=== PATIENT | female | born 1970 | race Caucasian/White ===

== ENCOUNTER → 2016-03-17 | Outpatient (CLI) | payer OTHER ==
--- NOTE | 2016-03-17 10:11 | CT ---
EXAMINATION TYPE: CT abdomen pelvis w con DATE OF EXAM: 03/17/2016 8:43 AM COMPARISON: 05/13/2012 INDICATION: Patient complains of RUQ, RLQ pain, and heavy menstrual flows. DLP: 879 mGycm, Automated exposure control for dose reduction was used. CONTRAST: 100 mL of Omnipaque 300. Study performed with Oral Contrast TECHNIQUE: Axial images were obtained from above the diaphragm to the pubic rami in the axial plane a t 5 mm thick sections. Reconstructed images are reviewed on the computer in the coronal plane. FINDINGS: Limited CT sections are obtained the lung bases. The lung bases are clear. CT ABDOMEN: Liver: Tiny right hepatic cyst may be present. Spleen: Normal Pancreas: Normal Adrenal glands: The adrenal glands are normal. Gallbladder: Surgically absent Kidneys: No masses are evident. No hydronephrosis is present. No cysts are present. Delayed images were obtained through the kidneys, which remain unremarkable. Aorta: Vascular calcification is within the aorta. Inferior vena cava: Normal. CT PELVIS: Loops of bowel within the abdomen and pelvis are normal. There are loops of bowel which are incom pletely distended or lack oral contrast limiting their evaluation. Appendix: Not visualized Urinary bladder: Normal. Genitourinary structures: There is a very large slightly heterogenous mass extending from the superio r portion of the uterus. This measures approximately 11.7 x 14.6 cm and has enlarged from 2012. This can be compatible with a large fibroid. Right adnexal region appears unremarkable. Left adnexal regio n likely contains a 2.1 cm cyst. Follow-up is recommended. Some minimal left hemipelvis free fluid ma y be present. Osseous structures: No suspicious lytic or sclerotic lesions. IMPRESSIONS: 1. Enlarging uterine fibroid displacing structures. 2. Left ovarian cyst measuring 2.1 cm. 3. Small amount of free fluid within the pelvis.
== END | disposition home or self-care (01) ==
LOC: RADCTMAIN 08:18
PROVIDERS: ATTEND Internal Medicine
DX: D25.9 Leiomyoma of uterus, unspecified (principal); N83.202 Unspecified ovarian cyst, left side
CPT/HCPCS: 74177; Q9967

== ENCOUNTER → 2018-03-27 | Outpatient (CLI) | payer OTHER ==
[2018-03-27 09:28] LABS: Anisocytosis Slight; Basophils % (A) 1 %; Eosinophils # (A) 0.2 k/uL (0-0.7); Eosinophils % (A) 2 %; HGB 11.3 gm/dL (11.4-16.0); Hypochromasia Marked; Lymphocytes # (A) 1.4 k/uL (1.0-4.8); Lymphocytes % (A) 21 %; MCH 25.8 pg (25.0-35.0); MCHC 31.3 g/dL (31.0-37.0); MCV 82.3 fL (80.0-100.0); Mean Platelet Volume 7.1; Monocytes # (A) 0.5 k/uL (0-1.0); Monocytes % (A) 8 %; Neutrophils # (A) 4.4 k/uL (1.3-7.7); Neutrophils % (A) 66 %; Platelet Count 361 k/uL (150-450); RBC 4.37 m/uL (3.80-5.40); RDW 16.3 % (11.5-15.5); WBC 6.7 k/uL (3.8-10.6)
--- NOTE | 2018-03-27 09:45 | XR ---
Cervical spine HISTORY: Neck pain 5 views of the cervical spine Cervical vertebral bodies show preserved height, near anatomic alignment, and bone mineralization. Di sc spaces are normal. Minimal retrolisthesis grade 1 C3-4, anterolisthesis grade 1 C4-5. There is altagracia e facet arthropathy changes. Prevertebral soft tissues are normal. No evident foraminal encroachment. Atherosclerotic vascular calcifications resident artery distribution. IMPRESSION: Facet arthropathy, consider cervical MRI. Additional findings above.
--- NOTE | 2018-03-27 10:14 | XR ---
Thoracic spine HISTORY: Pain 3 views of the thoracic spine Thoracic vertebral bodies show preserved height, alignment, and bone mineralization. There is multile emmett spondylosis. Spinal curvature could be positional. Surgical clips are present in the right upper quadrant. IMPRESSION: Thoracic spondylosis. MRI may be of benefit.
--- NOTE | 2018-03-27 10:18 | XR ---
Lumbosacral spine HISTORY: Pain for 2 years 6 views of the lumbosacral spine submitted. There is a mild spinal curvature centered at L4. Surgical clips are present in the right upper quadra nt. Lumbar vertebral bodies show preserved height. Bilateral spondylolysis present at L5. There is a minimal retrolisthesis grade 1 L5-S1. Associated loss of disc height is present L5-S1 and also at L1- 2. There is spondylosis in the lumbar spine. T12 is not rib bearing. Bone mineralization is maintaine d. Sclerosis present in the posterior elements of the lower lumbar spine. IMPRESSION: Spondylolysis, spondylolisthesis, facet arthropathy. Consider lumbar MRI.
[2018-03-27 16:43] LABS: Albumin 4.2 g/dL (3.80-4.90); Albumin/Globulin Ratio 2.21 (1.60-3.17); Anion Gap 15.3 mmol/L (4.00-12.00); Calcium 9.1 mg/dL (8.7-10.3); Carbon Dioxide 20.7 mmol/L (21.6-31.8); Globulin 1.9 g/dL (1.6-3.3); Potassium 3.7 mmol/L (3.5-5.5); Total Bilirubin 0.2 mg/dL (0.2-1.2); Total Protein 6.1 g/dL (6.2-8.2)
== END | disposition home or self-care (01) ==
LOC: LABWHC1 08:01
PROVIDERS: ATTEND Internal Medicine
DX: M43.12 Spondylolisthesis, cervical region (principal); M43.17 Spondylolisthesis, lumbosacral region; M47.814 Spondylosis without myelopathy or radiculopathy, thoracic region; M46.97 Unspecified inflammatory spondylopathy, lumbosacral region; M46.92 Unspecified inflammatory spondylopathy, cervical region; I10 Essential (primary) hypertension; K21.9 Gastro-esophageal reflux disease without esophagitis; J44.9 Chronic obstructive pulmonary disease, unspecified; R06.02 Shortness of breath
CPT/HCPCS: 36415; 72050; 72070; 72110; 80053; 85025

== ENCOUNTER → 2018-04-20 | Outpatient (CLI) | payer OTHER ==
--- NOTE | 2018-04-20 17:48 | MR ---
EXAMINATION TYPE: MR lumbar spine wo con DATE OF EXAM: 04/20/2018 COMPARISON: None HISTORY: Low back pain CONTRAST: 0 mL intravenous Gadavist. TECHNIQUE: Multiplanar, multisequence images of the lumbar spine were acquired. FINDINGS: L5-S1: Mild disc bulging is anterior thecal sac contact. No spinal canal stenosis present. There is s evere right foraminal stenosis disc bulging. Moderate left foraminal narrowing is present. Correlate with right S1 radicular symptoms. L4-L5: No significant disc bulge or disc herniation. No spinal canal stenosis. No foraminal stenosi s. Neural foramen are patent.. L3-L4: No significant disc bulge or disc herniation. No spinal canal stenosis. Neural foramen are pa tent.. L2-L3: No significant disc bulge or disc herniation. No spinal canal stenosis. No foraminal stenosi s. . L1-L2: No significant disc bulge or disc herniation. No spinal canal stenosis. No foraminal stenosi s. . T12-L1: No significant disc bulge or disc herniation. No spinal canal stenosis. No foraminal stenos is. . There is a hemangioma within T12 vertebral level. IMPRESSION: 1. Disc bulging L5-S1 appears mild minimal contact with the anterior thecal sac. 2. Disc bulging towards the right foramen contributes to severe foraminal stenosis correlate with rig ht S1 radicular.
== END ==
LOC: RADMRIMAIN 12:31
PROVIDERS: ATTEND Internal Medicine
DX: M99.73 Connective tissue and disc stenosis of intervertebral foramina of lumbar region (principal); M51.25 Other intervertebral disc displacement, thoracolumbar region
CPT/HCPCS: 72148

== ENCOUNTER → 2018-05-30 | Outpatient (CLI) | payer OTHER ==
--- NOTE | 2018-05-30 22:50 | MR ---
EXAMINATION TYPE: MR cspine/tspine wo con DATE OF EXAM: 05/30/2018 COMPARISON: X-ray cervical and thoracic spine March 27, 2018. HISTORY: Cervicalgia /Pain in thoracic spine per order. Headache with neck pain into shoulders arm an d hands causing pain or weakness for 6 months per patient. Mid back pain for 2 years per patient. TECHNIQUE: Multiplanar, multisequence imaging of cervical and thoracic spine are performed without co ntrast FINDINGS: C-SPINE: FINDINGS: Sagittal images of the cervical spine show the craniocervical junction to appear within nor mal limits. The cervical and upper thoracic spinal cord is normal in course, caliber, and signal. Th ere is slight grade 1 retrolisthesis of C3 on C4, C4 on C5, and C5 on C6. The vertebral body and int ravertebral disk heights are normal. The bone marrow signal intensity is within normal limits. Axial images show to C2-C3 level to appear within normal limits. Axial images at C3-C4 level shows small right paracentral/foraminal disc protrusion minimally effaces the anterior thecal sac and causing mild right-sided neural foraminal narrowing. Axial images at the C4-C5 level showed broad based posterior disc protrusion mildly facing anterior t hecal sac, bilateral neural foramina are patent. Axial images at C5-C6 level showed mild/moderate broad based disc protrusion effacing the anterior th ecal sac and causing mild left-sided neural foraminal narrowing. Axial images at C6-C7 level mild broad disc protrusion mildly effaces the anterior thecal sac, bilate ral neural foramina are patent. Axial images at C7-T1 level are within normal limits. IMPRESSION: Multilevel spondylolisthesis and degenerative changes C3-C4 through C6-C7 level as detail ed above. T-SPINE: Spinal cord shows normal course, caliber, and signal as it courses the thoracic spine. Vertebral bod y heights and alignment are satisfactory. Disc space heights are fairly well-maintained. Tiny posteri or disc herniations are present at T3-T4-T5-T6 level on sagittal images minimally effaces the anterio r thecal sac. Additional tiny posterior disc herniations are seen at T9-T10 and T10-T11 level minimal ly effacing the anterior thecal sac . Larger posterior disc herniations are seen at T11-T12 and T12-L 1 effacing the anterior thecal sac on sagittal images. Small hemangioma T12 level is present sagittal image 9 inferior endplate. Review of the axial images confirms most prominent findings of disc herniation and facet arthropathy with ligamentum flavum hypertrophy effaces the anterior and posterior lateral thecal sac axial image 6 at T11-T12 level. No additional disc herniations besides what stated above are identified. Visuali zed thorax and upper abdomen show no suspicious incidental abnormality. IMPRESSION: Multilevel small posterior disc herniations with prominent degenerative noted T11-T12 lev el as detailed above.
== END | disposition home or self-care (01) ==
LOC: RADMRIMAIN 18:58
PROVIDERS: ATTEND Psychiatry & Neurology Neurology
DX: M43.12 Spondylolisthesis, cervical region (principal); M51.24 Other intervertebral disc displacement, thoracic region; M51.34 Other intervertebral disc degeneration, thoracic region; M47.812 Spondylosis without myelopathy or radiculopathy, cervical region; Z88.1 Allergy status to other antibiotic agents
CPT/HCPCS: 72141; 72146

== ENCOUNTER 2022-05-01 08:58 | Inpatient (IN) | payer OTHER ==
[2022-05-01] MEDS ORDERED: PIPERACILLIN-TAZOBACTAM 3.375 GM in SODIUM CHLORIDE 0.9% 100 ML IVPB STA (09:02)
[2022-05-01] MEDS ORDERED: HYDROmorphone 0.5 MG/0.5 ML SYRINGE IVP STA (09:03)
--- NOTE | 2022-05-01 09:15 | ED ---
General Adult HPI - General Chief complaint: Abdominal Pain Stated complaint: post op Time Seen by Provider: 05/01/22 08:58 Source: patient, EMS, RN notes reviewed, old records reviewed Mode of arrival: EMS Limitations: no limitations - History of Present Illness Initial comments: This a 51-year-old female presents emergency department after having had a hysterectomy 2 weeks ago. Patient comes in today because she states that she coughed this morning and she has complete dehiscence of the wound and had bowel evisceration. Patient states it is very tender to palpate. Patient does not want back to see the surgeon who did the surgery at [facility]. Patient's states that she had a little bit of drainage from the site but it didn't rip open until today. - Related Data Allergies Allergy/AdvReac Type Severity Reaction Status Date / Time Tetracyclines AdvReac Anaphylaxis Verified 05/01/22 09:05 Review of Systems ROS Statement: Those systems with pertinent positive or pertinent negative responses have been documented in the HPI. ROS Other: All systems not noted in ROS Statement are negative. Past Medical History Past Medical History: Asthma, Hypertension History of Any Multi-Drug Resistant Organisms: None Reported Past Surgical History: Cholecystectomy, Hysterectomy Additional Past Surgical History / Comment(s): x 2. Past Psychological History: No Psychological Hx Reported Smoking Status: Current every day smoker Past Alcohol Use History: None Reported Past Drug Use History: Marijuana General Exam Limitations: no limitations Course Vital Signs 05/01/22 09:02 Temperature 98.8 F Pulse Rate 99 Respiratory 18 Rate Blood Pressure 120/71 O2 Sat by Pulse 99 Oximetry Medical Decision Making - Medical Decision Making EKG was interpreted by myself. EKG shows a sinus rhythm at 94 bpm [place] interval 246 dresses 98 QT interval 377 QTC is 429. Patient's EKG shows no ST segment elevation or depression. Was pt. sent in by a medical professional or institution (, PA, SALES REPRESENTATIVE ADDING MACHINES, urgent care, hospital, or residential...) When possible be specific @ -No Did you speak to anyone other than the patient for history (EMS, parent, family, police, friend...)? What history was obtained from this source @ -No Did you review nursing and triage notes (agree or disagree)? Why? @ -I reviewed and agree with nursing and triage notes Were old charts reviewed (outside hosp., previous admission, EMS record, old EKG, old radiological studies, urgent care reports/EKG's, residential records)? Report findings @ -No old charts were reviewed Differential Diagnosis (chest pain, altered mental status, abdominal pain women, abdominal pain men, vaginal bleeding, weakness, fever, dyspnea, syncope, headache, dizziness, GI bleed, back pain, seizure, CVA, palpatations, mental health, musculoskeletal)? @ -Differential Abdominal Pain Women: Wound dehiscence, bowel evisceration, Appendicitis, Cholecystitis, diverticulosis, ischemic bowel, pancreatitis, hepatitis, UTI, gastroenteritis, AAA, incarcerated hernia, bowel obstruction, constipation, inflammatory bowel, hepatitis, peptic ulcer disease, splenic infarction, perforated viscus, vulvitis, ovarian torsion, PID, kidney stone, placenta abruption, this is not meant to be an all-inclusive list EKG interpreted by me (3pts min.). @ -As above X-rays interpreted by me (1pt min.). @ -None done CT interpreted by me (1pt min.). @ -None done U/S interpreted by me (1pt. min.). @ -None done What testing was considered but not performed or refused? (CT, X-rays, U/S, labs)? Why? @ -None What meds were considered but not given or refused? Why? @ -None Did you discuss the management of the patient with other professionals (professionals i.e. , PA, SALES REPRESENTATIVE ADDING MACHINES, lab, RT, psych nurse, neonatal social worker, commercial art instructor, teacher, juvenile justice officer, rifle case repairer)? Give summary @ -I spoke with Dr. Harkins about the case and she agreed to come in and take the patient to surgery. I spoke with Dr. Terry she agreed that Gen. surgery's she should be taken care of this case. I spoke with Dr. kennedy he agreed to admit the patient to his service Was smoking cessation discussed for >3mins.? @ -No Was critical care preformed (if so, how long)? @ -No Were there social determinants of health that impacted care today? How? (Homelessness, low income, unemployed, alcoholism, drug addiction, transportation, low edu. Level, literacy, decrease access to med. care, detention, rehab)? @ -No Was there de-escalation of care discussed even if they declined (Discuss DNR or withdrawal of care, Hospice)? DNR status @ -No What co-morbidities impacted this encounter? (DM, HTN, Smoking, COPD, CAD, Cancer, CVA, ARF, Chemo, Hep., AIDS, mental health diagnosis, sleep apnea, morbid obesity)? @ -None Was patient admitted / discharged? Hospital course, mention meds given and route, prescriptions, significant lab abnormalities, going to OR and other pertinent info. @ -I saw the patient put in baseline orders EKG and type and screen to prep the patient for surgery. I spoke with the general surgeon the BILINGUAL SPEECH THERAPIST as well as engineering librarian. Patient will go to the OR with Dr. Raman and the patient will be admitted to Dr. nichols Undiagnosed new problem with uncertain prognosis? @ -No Drug Therapy requiring intensive monitoring for toxicity (Heparin, Nitro, Insulin, Cardizem)? @ -No Were any procedures done? @ -No Diagnosis/symptom? @ -Dehiscence with bowel evisceration Acute, or Chronic, or Acute on Chronic? @ -Acute Uncomplicated (without systemic symptoms) or Complicated (systemic symptoms)? @ -Complicated Side effects of treatment? @ -No Exacerbation, Progression, or Severe Exacerbation? @ -No Poses a threat to life or bodily function? How? (Chest pain, [place], DC, pneumonia, PE, COPD, DKA, ARF, appy, cholecystitis, CVA, Diverticulitis, Homicidal, Suicidal, threat to staff... and all critical care pts) @ -ES could lead to infection which can lead to sepsis and eventual end organ dysfunction Disposition Clinical Impression: Abdominal wall dehiscence, Evisceration of bowel Disposition: ADMITTED IP TO THIS HOSP Referrals: Trell Trevino MD [Primary Care Provider] - 1-2 days Time of Disposition: 09:34
[2022-05-01 09:38] LABS: Basophils # (A) 0.1 k/uL (0-0.2); Basophils % (A) 1 %; Eosinophils # (A) 0.3 k/uL (0-0.7); Eosinophils % (A) 2 %; HCT 29.8 % (34.0-46.0); HGB 9.6 gm/dL (11.4-16.0); Lymphocytes # (A) 1.4 k/uL (1.0-4.8); Lymphocytes % (A) 8 %; MCH 27.3 pg (25.0-35.0); MCHC 32.1 g/dL (31.0-37.0); MCV 85.2 fL (80.0-100.0); Mean Platelet Volume 7.1; Monocytes # (A) 0.6 k/uL (0-1.0); Monocytes % (A) 4 %; Neutrophils # (A) 14.3 k/uL (1.3-7.7); Neutrophils % (A) 84 %; Platelet Count 974 k/uL (150-450); RDW 14.3 % (11.5-15.5); WBC 17.1 k/uL (3.8-10.6)
[2022-05-01] MEDS ORDERED: SODIUM CHLORIDE 0.9% 1,000 ML IV ONE (09:38)
[2022-05-01 09:49] LABS: Partial Thromboplastin Time 24.1 sec (22.0-30.0); Prothrombin Time 10.4 sec (9.0-12.0)
[2022-05-01 09:50] LABS: ALT 15 U/L (4-34); AST 21 U/L (14-36); African American GFR (CKD) >90 (>60 ml/min/1.73 sqM); Albumin 2.9 g/dL (3.5-5.0); Alkaline Phosphatase 119 U/L (38-126); Anion Gap 7 mmol/L; Blood Urea Nitrogen 10 mg/dL (7-17); Calcium 8.3 mg/dL (8.4-10.2); Carbon Dioxide 26 mmol/L (22-30); Chloride 102 mmol/L (98-107); Glucose 98 mg/dL (74-99); Non-African American GFR(CKD) >90 (>60 ml/min/1.73 sqM); Potassium 4.1 mmol/L (3.5-5.1); Sodium 135 mmol/L (137-145); Total Bilirubin 0.3 mg/dL (0.2-1.3); Total Protein 5.6 g/dL (6.3-8.2)
[2022-05-01] MEDS ORDERED: HYDROmorphone 1 MG/ML 1 ML SYRINGE IVP STA (11:19)
[2022-05-01] MEDS ORDERED: ESTRADIOL 0.1 MG/GM VAGINAL CREAM 42.5 GM TUBE VAGINAL SCH (11:30)
--- NOTE | 2022-05-01 11:33 | P.HPIM ---
History of Present Illness 31-year-old female is admitted for wound dehiscence after coughing spell. 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 Patient has clear serous drainage beyond which exami nation is limited because of evisceration of the bowel, patient has a dressing over the dehiscence wound. Patient was given Zosyn in ER. Patient is going to OR. She had recent abdominal hysterectomy for uterine fibroids. REVIEW OF SYSTEMS: CONSTITUTIONAL: No fever, no malaise, no fatigue. HEENT: No recent visual problems or hearing problems. Denied any sore throat. CARDIOVASCULAR: No chest pain, orthopnea, PND, no palpitations, no syncope. PULMONARY: No shortness of breath, no cough, no hemoptysis. GASTROINTESTINAL: No diarrhea, no nausea, no vomiting, NEUROLOGICAL: No headaches, no weakness, no numbness. HEMATOLOGICAL: Denies any bleeding or petechiae. GENITOURINARY: Denies any burning micturition, frequency, or urgency. MUSCULOSKELETAL/RHEUMATOLOGICAL: Denies any joint pain, swelling, or any muscle pain. ENDOCRINE: Denies any polyuria or polydipsia. The rest of the 14-point review of systems is negative. PHYSICAL EXAMINATION: GENERAL: The patient is alert and oriented x3, not in any acute distress. Well developed, well nourished. HEENT: Pupils are round and equally reacting to light. EOMI. No scleral icterus. No conjunctival pallor. Normocephalic, atraumatic. No pharyngeal erythema. No thyromegaly. CARDIOVASCULAR: S1 and S2 present. No murmurs, rubs, or gallops. PULMONARY: Chest is clear to auscultation, no wheezing or crackles. ABDOMEN: Soft, nontender, nondistended, normoactive bowel sounds. No palpable organomegaly. The dressing with serous drainage unable to assess that dehiscence unable to assess the surrounding skin as it was packed with wet dressing MUSCULOSKELETAL: No joint swelling or deformity. EXTREMITIES: No cyanosis, clubbing, or pedal edema. NEUROLOGICAL: Gross neurological examination did not reveal any focal deficits. SKIN: No rashes. Assessment and plan -Wound dehiscence patient will go to OR, unsure whether patient needs antibiotics will discuss with surgery. -COPD without any acute exacerbation: Cessation counseling will be provided -Hypertension patient is hypotensive will hold off and hip his medications except for beta brittany. - DVT prophylaxis: Lovenox Past Medical History Past Medical History: Asthma, Hypertension History of Any Multi-Drug Resistant Organisms: None Reported Past Surgical History: Cholecystectomy, Hysterectomy Additional Past Surgical History / Comment(s): x 2. Past Psychological History: No Psychological Hx Reported Smoking Status: Current every day smoker Past Alcohol Use History: None Reported Past Drug Use History: Marijuana Medications and Allergies Home Medications Medication Instructions Recorded Confirmed Type Albuterol Sulfate [Ventolin HFA] 1 - 2 puff INHALATION RT-Q6H PRN 05/01/22 05/01/22 History Cetirizine HCl 10 mg PO DAILY 05/01/22 05/01/22 History Docusate [Colace] 100 mg PO BID PRN 05/01/22 05/01/22 History Estradiol Cream [Estrace Cream 1 applic VAGINAL DIRECTED 05/01/22 05/01/22 History 0.01%] Ferrous Sulfate [Feosol] 325 mg PO DAILY 05/01/22 05/01/22 History HYDROcodone/APAP 7.5-325MG [[place] 1 tab PO Q4H PRN 05/01/22 05/01/22 History 7.5-325] Ibuprofen [Motrin] 800 mg PO Q8H PRN 05/01/22 05/01/22 History Levothyroxine Sodium [Synthroid] 25 mcg PO DAILY 05/01/22 05/01/22 History Losartan Potassium 100 mg PO DAILY 05/01/22 05/01/22 History Montelukast [Singulair] 10 mg PO DAILY 05/01/22 05/01/22 History Multivitamins, Thera [Multivitamin 1 tab PO DAILY 05/01/22 05/01/22 History (formulary)] Omeprazole 20 mg PO DAILY 05/01/22 05/01/22 History Tiotropium Nitro [Spiriva] 18 mcg INHALATION RT-DAILY 05/01/22 05/01/22 History amLODIPine [Norvasc] 10 mg PO DAILY 05/01/22 05/01/22 History atenoloL [Tenormin] 25 mg PO DAILY 05/01/22 05/01/22 History Allergies Allergy/AdvReac Type Severity Reaction Status Date / Time Tetracyclines AdvReac Anaphylaxis Verified 05/01/22 10:41 Physical Exam Vitals: Vital Signs Temp Pulse Pulse Resp BP BP Pulse Ox 05/01/22 10:45 98.0 F 96 18 102/66 95 05/01/22 10:20 92 18 99/60 99 05/01/22 10:05 93 18 109/71 98 05/01/22 09:45 98 18 100/64 98 05/01/22 09:20 96 18 112/74 99 05/01/22 09:02 98.8 F 99 18 120/71 99 Intake and Output 04/30/22 05/01/22 05/01/22 21:59 06:59 14:59 Other: Weight 87.997 kg Results CBC & Chem 7: 05/01/22 09:02 05/01/22 09:02 Labs: Abnormal Lab Results - Last 24 Hours (Table) 05/01/22 05/01/22 Range/Units 09:02 09:02 WBC 17.1 H (3.8-10.6) k/uL RBC 3.50 L (3.80-5.40) m/uL Hgb 9.6 L (11.4-16.0) gm/dL Hct 29.8 L (34.0-46.0) % Plt Count 974 H (150-450) k/uL Neutrophils # 14.3 H (1.3-7.7) k/uL Sodium 135 L (137-145) mmol/L Calcium 8.3 L (8.4-10.2) mg/dL Total Protein 5.6 L (6.3-8.2) g/dL Albumin 2.9 L (3.5-5.0) g/dL Thrombosis Risk Factor Assmnt - Choose All That Apply Each Factor Represents 1 point: Age 41-60 years, History of prior major surgery (<1month), Obesity (BMI >25) Other Risk Factors: No Other congenital or acquired thrombophilia - If yes, enter type in comment: No Thrombosis Risk Factor Assessment Total Risk Factor Score: 3 Thrombosis Risk Factor Assessment Level: Moderate Risk
--- NOTE | 2022-05-01 13:22 | P.GSCN ---
History of Present Illness Consult date: 05/01/22 Reason for Consult: bowel evisceration History of present illness: 51F presented to ER with bowel evisceration from recent hysterectomy. Underwent hysterectomy 2 weeks ago at [facility] for uterine fibroids. Endorsed some fluid leaking from incision then this morning after a coughing spell, noticed bowel protruding from incision. She refused to be transferred back to [facility]. call specialist CATHODE BUILDER called by ER, refused consult. Seen in ER. Nervous but just wants to be fixed. Thinks it happened this morning & doesn't believe bowel has been out before then. Generalized abdominal pain. No nausea. Review of Systems - Constitutional Reports chronic pain - Cardiovascular Reports high blood pressure, Denies irregular heart beat - Respiratory Reports cough, Denies home oxygen - Gastrointestinal Reports abdominal pain - Genitourinary Genitourinary Comment(s): history of uterine fibroids - Endocrine Denies high blood sugars Past Medical History Past Medical History: Asthma, Hypertension History of Any Multi-Drug Resistant Organisms: None Reported Past Surgical History: Cholecystectomy, Hysterectomy Additional Past Surgical History / Comment(s): x 2. Past Psychological History: No Psychological Hx Reported Smoking Status: Current every day smoker Past Alcohol Use History: None Reported Past Drug Use History: Marijuana Medications and Allergies Home Medications Medication Instructions Recorded Confirmed Type Albuterol Sulfate [Ventolin HFA] 1 - 2 puff INHALATION RT-Q6H PRN 05/01/22 05/01/22 History Cetirizine HCl 10 mg PO DAILY 05/01/22 05/01/22 History Docusate [Colace] 100 mg PO BID PRN 05/01/22 05/01/22 History Estradiol Cream [Estrace Cream 1 applic VAGINAL DIRECTED 05/01/22 05/01/22 History 0.01%] Ferrous Sulfate [Feosol] 325 mg PO DAILY 05/01/22 05/01/22 History HYDROcodone/APAP 7.5-325MG [[place] 1 tab PO Q4H PRN 05/01/22 05/01/22 History 7.5-325] Ibuprofen [Motrin] 800 mg PO Q8H PRN 05/01/22 05/01/22 History Levothyroxine Sodium [Synthroid] 25 mcg PO DAILY 05/01/22 05/01/22 History Losartan Potassium 100 mg PO DAILY 05/01/22 05/01/22 History Montelukast [Singulair] 10 mg PO DAILY 05/01/22 05/01/22 History Multivitamins, Thera [Multivitamin 1 tab PO DAILY 05/01/22 05/01/22 History (formulary)] Omeprazole 20 mg PO DAILY 05/01/22 05/01/22 History Tiotropium [place] [Spiriva] 18 mcg INHALATION RT-DAILY 05/01/22 05/01/22 History amLODIPine [Norvasc] 10 mg PO DAILY 05/01/22 05/01/22 History atenoloL [Tenormin] 25 mg PO DAILY 05/01/22 05/01/22 History Allergies Allergy/AdvReac Type Severity Reaction Status Date / Time Tetracyclines AdvReac Anaphylaxis Verified 05/01/22 10:41 Surgical - Exam Osteopathic Statement: *. No significant issues noted on an osteopathic structural exam other than those noted in the History and Physical/Consult. Vital Signs Temp Pulse Resp BP Pulse Ox 98.8 F 99 18 120/71 99 05/01/22 09:02 05/01/22 09:02 05/01/22 09:02 05/01/22 09:02 05/01/22 09:02 - General well developed, well nourished, moderate distress, no cachectic - Eyes no icteric - ENT dry mucosa no hearing loss - Neck supple - Respiratory normal expansion, normal respiratory effort, clear to auscultation - Cardiovascular Rhythm: regular - Abdomen large amount of small bowel eviscerated from recent incision Abdomen: soft, non tender - Integumentary dry, no diaphoresis - Neurologic no gross deficits - Psychiatric cooperative, normal affect oriented to person, oriented to place Results - Labs 05/01/22 09:02 05/01/22 09:02 Abnormal Lab Results - Last 24 Hours (Table) 05/01/22 05/01/22 Range/Units 09:02 09:02 WBC 17.1 H (3.8-10.6) k/uL RBC 3.50 L (3.80-5.40) m/uL Hgb 9.6 L (11.4-16.0) gm/dL Hct 29.8 L (34.0-46.0) % Plt Count 974 H (150-450) k/uL Neutrophils # 14.3 H (1.3-7.7) k/uL Sodium 135 L (137-145) mmol/L Calcium 8.3 L (8.4-10.2) mg/dL Total Protein 5.6 L (6.3-8.2) g/dL Albumin 2.9 L (3.5-5.0) g/dL Diabetes panel 05/01/22 Range/Units 09:02 Sodium 135 L (137-145) mmol/L Potassium 4.1 (3.5-5.1) mmol/L Chloride 102 (98-107) mmol/L Carbon Dioxide 26 (22-30) mmol/L BUN 10 (7-17) mg/dL Creatinine 0.71 (0.52-1.04) mg/dL Glucose 98 (74-99) mg/dL Calcium 8.3 L (8.4-10.2) mg/dL AST 21 (14-36) U/L ALT 15 (4-34) U/L Alkaline Phosphatase 119 (38-126) U/L Total Protein 5.6 L (6.3-8.2) g/dL Albumin 2.9 L (3.5-5.0) g/dL Calcium panel 05/01/22 Range/Units 09:02 Calcium 8.3 L (8.4-10.2) mg/dL Albumin 2.9 L (3.5-5.0) g/dL Pituitary panel 05/01/22 Range/Units 09:02 Sodium 135 L (137-145) mmol/L Potassium 4.1 (3.5-5.1) mmol/L Chloride 102 (98-107) mmol/L Carbon Dioxide 26 (22-30) mmol/L BUN 10 (7-17) mg/dL Creatinine 0.71 (0.52-1.04) mg/dL Glucose 98 (74-99) mg/dL Calcium 8.3 L (8.4-10.2) mg/dL Adrenal panel 05/01/22 Range/Units 09:02 Sodium 135 L (137-145) mmol/L Potassium 4.1 (3.5-5.1) mmol/L Chloride 102 (98-107) mmol/L Carbon Dioxide 26 (22-30) mmol/L BUN 10 (7-17) mg/dL Creatinine 0.71 (0.52-1.04) mg/dL Glucose 98 (74-99) mg/dL Calcium 8.3 L (8.4-10.2) mg/dL Total Bilirubin 0.3 (0.2-1.3) mg/dL AST 21 (14-36) U/L ALT 15 (4-34) U/L Alkaline Phosphatase 119 (38-126) U/L Total Protein 5.6 L (6.3-8.2) g/dL Albumin 2.9 L (3.5-5.0) g/dL Assessment and Plan Assessment: small bowel evisceration incisional wound dehiscence recent hysterectomy at [facility] Plan: to OR urgently for exploratory laparotomy, abdominal washout & primary closure with mesh reinforcement, possible bowel resection - post-operative pain expectations discussed; if needs more than appropriate for post-operative pain mgmt, will need to be seen by Pain Specialist or PCP Time with Patient: Less than 30
[2022-05-01] MEDS ORDERED: DEXAMETHASONE SOD PHOS (MDV) 100 MG/10 ML VIAL ONE (13:36)
[2022-05-01] MEDS ORDERED: ROCURONIUM 10 MG/ML (5 ML VIAL) IV ONE (13:36)
[2022-05-01] MEDS ORDERED: fentaNYL (PF) 50 MCG/ML 2 ML AMP ONE (13:36)
[2022-05-01] MEDS ORDERED: NEOSTIGMINE 1 MG/ML 10 ML VIAL ONE (13:36)
[2022-05-01] MEDS ORDERED: HYDROmorphone (PF) 1 MG/ML ONE (13:36)
[2022-05-01] MEDS ORDERED: SUCCINYLCHOLINE CHLORIDE 200 MG/10 ML VIAL IV ONE (13:36)
[2022-05-01] MEDS ORDERED: ONDANSETRON 4 MG/2 ML VIAL ONE (13:36)
[2022-05-01] MEDS ORDERED: GLYCOPYRROLATE 0.2 MG/ML 2 ML VIAL ONE (13:36)
[2022-05-01] MEDS ORDERED: LIDOCAINE 2% INJ 20 MG/ML (2 ML VIAL) ONE (13:36)
[2022-05-01] MEDS ORDERED: MIDAZOLAM 2 MG/2 ML VIAL ONE (13:36)
[2022-05-01] MEDS ORDERED: PROPOFOL 10 MG/ML 20 ML VIAL IV ONE (13:36)
[2022-05-01] MEDS ORDERED: diphenhydrAMINE 50 MG/ML 1 ML VIAL ONE (13:36)
[2022-05-01] MEDS ORDERED: IV FLUID CONTINUATION 1,000 ML IV ONE (13:39)
[2022-05-01] MEDS ORDERED: LACTATED RINGERS 1,000 ML IV ONE ×3 (15:26→15:33)
[2022-05-01] MEDS ORDERED: HYDROmorphone 0.5 MG/0.5 ML SYRINGE IVP ONE ×5 (16:32→17:30)
--- NOTE | 2022-05-01 16:32 | P.OP ---
Date of Procedure: 05/01/22 Preoperative Diagnosis: bowel evisceration wound dehiscence recent hysterectomy at [facility] Postoperative Diagnosis: bowel evisceration wound dehiscence recent hysterectomy at [facility] Procedure(s) Performed: exploratory laparotomy, abdominal washout, lysis of adhesions, creation of fasciocutaneous flaps, primary closure of fascia, wound vac placement Anesthesia: MERLIN Surgeon: Magali Harkins Estimated Blood Loss (ml): 20 Pathology: none sent Condition: stable Disposition: floor Indications for Procedure: bowel evisceration Description of Procedure: please see full dictation for details
[2022-05-01] MEDS ORDERED: FAMOTIDINE 20 MG/2 ML VIAL IVP ONE (16:40)
[2022-05-01] MEDS ORDERED: ACETAMINOPHEN IV (For NPO) 1,000 MG/100 ML VIAL IVPB ONE (17:02)
[2022-05-01] MEDS: PIPERACILLIN-TAZOBACTAM 3.375 GM in SODIUM CHLORIDE 0.9% 100 ML IVPB SCH (18:09)
[2022-05-01] MEDS: HEPARIN SODIUM,PORCINE/PF 5,000 UNIT/0.5 ML SYRINGE SQ SCH (18:09)
[2022-05-01] MEDS: HYDROmorphone 1 MG/ML 1 ML SYRINGE IVP PRN ×2 (20:00→23:24)
[2022-05-01] MEDS: DEXTROSE 5%-0.45% NACL 1,000 ML IV SCH (23:33)
[2022-05-02] MEDS: PIPERACILLIN-TAZOBACTAM 3.375 GM in SODIUM CHLORIDE 0.9% 100 ML IVPB SCH ×4 (00:22→22:57)
[2022-05-02] MEDS: HEPARIN SODIUM,PORCINE/PF 5,000 UNIT/0.5 ML SYRINGE SQ SCH ×4 (00:22→22:57)
[2022-05-02] MEDS: HYDROmorphone 1 MG/ML 1 ML SYRINGE IVP PRN ×6 (02:33→20:07)
[2022-05-02] MEDS: LEVOTHYROXINE 25 MCG TAB PO SCH (07:36)
[2022-05-02] MEDS: TIOTROPIUM 2.5 MCG INHALER INHALATION SCH (08:08)
[2022-05-02] MEDS: ALBUTEROL HFA INHALER INHALATION PRN ×2 (08:08→20:09)
[2022-05-02] MEDS: ONDANSETRON 4 MG/2 ML VIAL IVP PRN (08:50)
[2022-05-02] MEDS: MULTIVITAMINS, THERA 1 EACH TAB PO SCH (08:50)
[2022-05-02] MEDS: PANTOPRAZOLE 40 MG TABLET PO SCH (08:51)
[2022-05-02] MEDS: MONTELUKAST 10 MG TAB PO SCH (08:51)
[2022-05-02] MEDS: atenoloL 25 MG TAB PO SCH (08:51)
[2022-05-02] MEDS: DEXTROSE 5%-0.45% NACL 1,000 ML IV SCH ×2 (08:51→17:29)
[2022-05-02] MEDS: methocarbamoL 500 MG TAB PO SCH ×4 (08:59→22:56)
[2022-05-02 09:15] LABS: African American GFR (CKD) 115.5 (60.0-200.0); Anion Gap 12.7 mmol/L (10.00-18.00); BUN/Creat Ratio 15.57 Ratio (12.00-20.00); Blood Urea Nitrogen 10.9 mg/dL (9.0-27.0); Calcium 8.8 mg/dL (8.7-10.3); Carbon Dioxide 22.3 mmol/L (20.0-27.5); Non-African American GFR(CKD) 99.6 (60.0-200.0)
[2022-05-02 10:59] LABS: Basophils # (A) 0.06 X 10*3/uL (0.00-0.10); Basophils % (A) 0.2 %; Eosinophils # (A) 0.01 X 10*3/uL (0.04-0.35); Eosinophils % (A) 0 %; Immature Grans, Automated 1.1 %; Lymphocytes # (A) 1.18 X 10*3/uL (0.90-5.00); Lymphocytes % (A) 4.5 %; Monocytes # (A) 0.82 X 10*3/uL (0.20-1.00); Monocytes % (A) 3.1 %; NRBC Per 100 WBC 0 /100 WBCS (0.0-0.0); Neutrophils # (A) 23.97 X 10*3/uL (1.80-7.70); Neutrophils % (A) 91.1 %
[2022-05-02 11:07] LABS: HCT 29.8 % (37.2-46.3); MCH 26.9 pg (27.0-32.0); MCHC 30.2 g/dL (32.0-37.0); MCV 89.2 fL (80.0-97.0); Mean Platelet Volume 9.4 fL (9.5-12.2); Platelet Count 1095 X 10*3/uL (140-440); RBC 3.34 X 10*6/uL (4.10-5.20); RDW 15.2 % (11.5-14.5); WBC 26.33 X 10*3/uL (4.50-10.00)
--- NOTE | 2022-05-02 11:12 | XR ---
EXAMINATION TYPE: XR chest 1V portable DATE OF EXAM: 05/02/2022 11:05 AM COMPARISON: Chest radiographs from 12/17/2011. TECHNIQUE: XR chest 1V portable Portable AP radiograph of the chest. CLINICAL INDICATION:Female, 51 years old with history of hypoxia; FINDINGS: Lungs/Pleura: There is no evidence of pleural effusion, focal consolidation, or pneumothorax. Pulmonary vascularity: Unremarkable. Heart/mediastinum: Cardiomediastinal silhouette is unremarkable. Musculoskeletal: No acute osseous pathology. Other findings: None Lines/Tubes: Nasogastric tube with its distal tip and side-port projecting under the diaphragm and projecting over the gastric lumen. IMPRESSION: 1. No focal consolidation. 2. NG tube in appropriate position.
[2022-05-02] MEDS: KETOROLAC 15 MG/ML 1 ML VIAL IVP PRN ×2 (12:36→17:38)
--- NOTE | 2022-05-02 14:32 | P.PN ---
Subjective Progress Note Date: 05/02/22 31-year-old female is admitted for wound dehiscence after coughing spell. 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 Patient has clear serous drainage beyond which examination is limited because of evisceration of the bowel, patient has a dres sing over the dehiscence wound. Patient was given Zosyn in ER. Patient is going to OR. She had recent abdominal hysterectomy for uterine fibroids. 05/02/2022 Patient evaluated today postoperative day #1 eploratory laporatomy with adbominal washout, lysis of adhesions, primary closure and wound vac placement. Patient had bowel evisceration. Patient is currently afebrile. Has white count of 26.33 today and will remain on IV zosyn. Blood culture pending. Wound vac in place with no air leak and patient is wearing abdominal binder. Platelet count of 1095 today. Which will be repeated and monitored. Patient does continue on nasal cannula and chest xray done which is negative for consolidation, effusion or pneumothorax. Patient has NG tube in place with 700 mls of dark brown gastric output. Currently NPO. Patient is maintained on D5 0.45 normal saline at 100 mls/hr. Urine output 1.4 L in the last 24 hours. Review of Systems Constitutional: Denied any fatigue denied any fever. Cardio vascular: denied any chest pain, palpitations Gastrointestinal: Reports significant abdominal pain Pulmonary: Denied any shortness of breath cough Neurologic denied any new focal deficits All inpatient medications were reviewed and appropriate changes in these medications as dictated in the interval history and assessment and plan. PHYSICAL EXAMINATION: GENERAL: The patient is alert and oriented x3, not in any acute distress. Well developed, well nourished. HEENT: Pupils are round and equally reacting to light. EOMI. No scleral icterus. No conjunctival pallor. Normocephalic, atraumatic. No pharyngeal erythema. No thyromegaly. CARDIOVASCULAR: S1 and S2 present. No murmurs, rubs, or gallops. PULMONARY: Chest is clear to auscultation, no wheezing or crackles. ABDOMEN: Soft, nontender, nondistended, normoactive bowel sounds. No palpable organomegaly. Wound vac and abdominal binder in place. MUSCULOSKELETAL: No joint swelling or deformity. EXTREMITIES: No cyanosis, clubbing, or pedal edema. NEUROLOGICAL: Gross neurological examination did not reveal any focal deficits. SKIN: No rashes. Assessment and plan -Wound dehiscence from recent open abdominal hysterectomy with bowel e visceration. Patient is postoperative day #1 exploratory lap, washout and closure. Wound vac in place. -Leukocytosis secondary to above. -COPD without any acute exacerbation: Cessation counseling will be provided -Hypertension patient is hypotensive will hold off and hip his medications except for beta brittany. -History asthma -Daily tobacco use DVT prophylaxis: Subcuheparin GI prophylaxis: Protonix Plan Continue NPO and NG tube in place. Further recommendations by surgery. Continue IV fluids. Pain management. Repeat labs. The impression and plan of care has been dictated by Gloria Ba, Nurse Practitioner as directed. Dr. Nelida MD I have performed a history and physical examination and medical decision making of this patient, discussed the same with the dictator, and agree with the dictators assessment and plan as written, documented as a scribe. Based on total visit time, I have performed more than 50% of this visit. Objective - Vital Signs Vital signs: Vital Signs Temp 97.5 F L 05/02/22 07:00 Pulse 98 05/02/22 07:00 Resp 18 05/02/22 07:00 BP 123/80 05/02/22 07:00 Pulse Ox 93 L 05/02/22 07:00 FiO2 Intake & Output 05/01/22 05/02/22 05/02/22 18:59 06:59 18:59 Intake Total 2600 Output Total 670 325 450 Balance 1930 -325 -450 Weight 87.997 kg Intake: IV 2600 Output: Gastric Drainage 450 Urine 650 325 Estimated Blood Loss 20 Other: Voiding Method Indwelling Catheter Indwelling Catheter - Labs CBC & Chem 7: 05/02/22 04:48 05/02/22 04:48 Labs: Abnormal Lab Results - Last 24 Hours (Table) 05/02/22 Range/Units 04:48 WBC 26.33 H (4.50-10.00) X 10*3/uL RBC 3.34 L (4.10-5.20) X 10*6/uL Hgb 9.0 L (12.0-15.0) g/dL Hct 29.8 L (37.2-46.3) % MCH 26.9 L (27.0-32.0) pg MCHC 30.2 L (32.0-37.0) g/dL RDW 15.2 H (11.5-14.5) % Plt Count 1095 H* (140-440) X 10*3/uL Plt Count Comment INCREASED A MPV 9.4 L (9.5-12.2) fL Immature Gran # 0.29 H (0.00-0.04) X 10*3/uL Neutrophils # 23.97 H (1.80-7.70) X 10*3/uL Eosinophils # 0.01 L (0.04-0.35) X 10*3/uL Microbiology - Last 24 Hours (Table) 05/01/22 09:25 Blood Culture - Preliminary Blood No Growth after 24 hours 05/01/22 09:10 Blood Culture - Preliminary Blood No Growth after 24 hours Assessment and Plan Time with Patient: Less than 30
[2022-05-02 17:10] LABS: Partial Thromboplastin Time 23.5 sec (22.0-30.0); Prothrombin Time 10.6 sec (9.0-12.0)
--- NOTE | 2022-05-02 20:38 | P.PN ---
Subjective Progress Note Date: 05/02/22 Principal diagnosis: bowel evisceration 51F presented to ER with bowel evisceration from recent hysterectomy. Underwent hysterectomy 2 weeks ago at [facility] for uterine fibroids. Endorsed some fluid leaking from incision then this morning after a coughing spell, noticed bowel protruding from incision. She refused to be transferred back to [facility]. call center representative SLURRY WORKER called by ER, refused consult. Overall doing well. Having pain, as expected. NG with bilious output. No flatus yet but feels bowels moving. Objective - Vital Signs Vital signs: Vital Signs Temp 98.2 F 05/02/22 12:23 Pulse 105 H 05/02/22 12:23 Resp 18 05/02/22 12:23 BP 118/74 05/02/22 12:23 Pulse Ox 92 L 05/02/22 12:23 FiO2 Intake & Output 05/01/22 05/02/22 05/02/22 18:59 06:59 18:59 Intake Total 2600 Output Total 670 325 450 Balance 1930 -325 -450 Weight 87.997 kg Intake: IV 2600 Output: Gastric Drainage 450 Urine 650 325 Estimated Blood Loss 20 Other: Voiding Method Indwelling Catheter Indwelling Catheter - Constitutional General appearance: Present: cooperative, no acute distress - EENT Eyes: Present: anicteric sclerae ENT: Present: hearing grossly normal - Neck Details: supple - Respiratory Details: non labored breathing, normal effort & excursion - Cardiovascular Rhythm: regular - Gastrointestinal Gastrointestinal Comment(s): appropriately tender to palpation, wound vac intact with good seal General gastrointestinal: Present: soft. Absent: distended - Integumentary Integumentary Comment(s): dry, no diaphoresis - Neurologic Neurologic Comment(s): grossly intact - Psychiatric Psychiatric Comment(s): cooperative, normal affect - Labs CBC & Chem 7: 05/02/22 04:48 05/02/22 04:48 Labs: Abnormal Lab Results - Last 24 Hours (Table) 05/02/22 Range/Units 04:48 WBC 26.33 H (4.50-10.00) X 10*3/uL RBC 3.34 L (4.10-5.20) X 10*6/uL Hgb 9.0 L (12.0-15.0) g/dL Hct 29.8 L (37.2-46.3) % MCH 26.9 L (27.0-32.0) pg MCHC 30.2 L (32.0-37.0) g/dL RDW 15.2 H (11.5-14.5) % Plt Count 1095 H* (140-440) X 10*3/uL Plt Count Comment INCREASED A MPV 9.4 L (9.5-12.2) fL Immature Gran # 0.29 H (0.00-0.04) X 10*3/uL Neutrophils # 23.97 H (1.80-7.70) X 10*3/uL Eosinophils # 0.01 L (0.04-0.35) X 10*3/uL Microbiology - Last 24 Hours (Table) 05/01/22 09:25 Blood Culture - Preliminary Blood No Growth after 24 hours 05/01/22 09:10 Blood Culture - Preliminary Blood No Growth after 24 hours Assessment and Plan Assessment: small bowel evisceration incisional wound dehiscence recent hysterectomy at [facility] s/p exploratory laparotomy with abdominal washout, closure of fasica & application of wound vac Plan: optimize multimodal pain regimen plan for OR tomorrow for abdominal wound washout, incisional reinforcement with mesh & wound vac application - on ATC antibiotics, NPO at midnight, boarded through boarding Time with Patient: Less than 30
[2022-05-02] MEDS: HYDROcodone/APAP 7.5-325MG 1 EACH TAB PO PRN (22:56)
[2022-05-03] MEDS: KETOROLAC 15 MG/ML 1 ML VIAL IVP PRN ×3 (01:49→22:31)
[2022-05-03] MEDS: HYDROmorphone 1 MG/ML 1 ML SYRINGE IVP PRN ×4 (05:16→20:44)
[2022-05-03] MEDS: DEXTROSE 5%-0.45% NACL 1,000 ML IV SCH ×2 (05:17→11:59)
[2022-05-03] MEDS: LEVOTHYROXINE 25 MCG TAB PO SCH (05:17)
[2022-05-03 05:57] LABS: Glucose,Whole Blood 126 mg/dL (70-110)
[2022-05-03 09:13] LABS: NRBC Per 100 WBC 0 /100 WBCS (0.0-0.0)
[2022-05-03] MEDS: MULTIVITAMINS, THERA 1 EACH TAB PO SCH (09:14)
[2022-05-03] MEDS: ALBUTEROL HFA INHALER INHALATION PRN ×2 (09:19→15:45)
[2022-05-03] MEDS: TIOTROPIUM 2.5 MCG INHALER INHALATION SCH (09:19)
[2022-05-03] MEDS: methocarbamoL 500 MG TAB PO SCH ×4 (09:21→23:42)
[2022-05-03] MEDS: PIPERACILLIN-TAZOBACTAM 3.375 GM in SODIUM CHLORIDE 0.9% 100 ML IVPB SCH ×3 (09:22→23:42)
[2022-05-03] MEDS: PANTOPRAZOLE 40 MG TABLET PO SCH (09:22)
[2022-05-03] MEDS: MONTELUKAST 10 MG TAB PO SCH (09:22)
[2022-05-03] MEDS: atenoloL 25 MG TAB PO SCH (09:22)
[2022-05-03 09:29] LABS: Basophils # (A) 0.02 X 10*3/uL (0.00-0.10); Basophils % (A) 0.2 %; Eosinophils # (A) 0.22 X 10*3/uL (0.04-0.35); Eosinophils % (A) 1.7 %; HCT 28.2 % (37.2-46.3); HGB 8.6 g/dL (12.0-15.0); Immature Grans, Automated 1.1 %; Lymphocytes # (A) 1.51 X 10*3/uL (0.90-5.00); Lymphocytes % (A) 11.4 %; MCH 26.9 pg (27.0-32.0); MCHC 30.5 g/dL (32.0-37.0); MCV 88.1 fL (80.0-97.0); Mean Platelet Volume 9.3 fL (9.5-12.2); Monocytes # (A) 0.95 X 10*3/uL (0.20-1.00); Monocytes % (A) 7.2 %; Neutrophils # (A) 10.43 X 10*3/uL (1.80-7.70); Neutrophils % (A) 78.4 %; Platelet Count 1030 X 10*3/uL (140-440); RDW 15.2 % (11.5-14.5); WBC 13.27 X 10*3/uL (4.50-10.00)
[2022-05-03 09:32] LABS: African American GFR (CKD) 103.4 (60.0-200.0); Anion Gap 9.2 mmol/L (10.00-18.00); BUN/Creat Ratio 20.73 Ratio (12.00-20.00); Blood Urea Nitrogen 15.9 mg/dL (9.0-27.0); Calcium 8.4 mg/dL (8.7-10.3); Carbon Dioxide 23.5 mmol/L (20.0-27.5); Magnesium 2.1 mg/dL (1.5-2.4); Non-African American GFR(CKD) 89.2 (60.0-200.0); Potassium 4.1 mmol/L (3.5-5.5)
[2022-05-03] MEDS: HEPARIN SODIUM,PORCINE/PF 5,000 UNIT/0.5 ML SYRINGE SQ SCH ×3 (09:47→22:16)
[2022-05-03] MEDS ORDERED: IV FLUID CONTINUATION 1,000 ML IV ONE (16:14)
[2022-05-03 16:35] LABS: Glucose,Whole Blood 115 mg/dL (70-110)
[2022-05-03] MEDS ORDERED: DEXAMETHASONE SOD PHOSPHATE 4 MG/ML 1 ML VIAL IVP ONE (16:45)
[2022-05-03] MEDS: ONDANSETRON 4 MG/2 ML VIAL IVP PRN (16:45)
--- NOTE | 2022-05-03 16:59 | P.PN ---
Progress Note - Text Progress Note Date: 05/03/22 31-year-old female is admitted for wound dehiscence after coughing spell. 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 Patient has clear serous drainage beyond which examination is limited because of evisceration of the bowel, patient has a dressing over the dehiscence wound. Patient was given Zosyn in ER. Patient is going to OR. She had recent abdominal hysterectomy for uterine fibroids. 05/02/2022 Patient evaluated today postoperative day #1 eploratory laporatomy with adbominal washout, lysis of adhesions, primary closure and wound vac placement. Patient had bowel evisceration. Patient is currently afebrile. Has white count of 26.33 today and will remain on IV zosyn. Blood culture pending. Wound vac in place with no air leak and patient is wearing abdominal binder. Platelet count of 1095 today. Which will be repeated and monitored. Patient does continue on nasal cannula and chest xray done which is negative for consolidation, effusion or pneumothorax. Patient has NG tube in place with 700 mls of dark brown gastric output. Currently NPO. Patient is maintained on D5 0.45 normal saline at 100 mls/hr. Urine output 1.4 L in the last 24 hours. 05/03/2022: I assumed care of the patient today. Declining in bed. Has a wound VAC in place. NG tube to suction. Has been at the operative site. No flatus. Pending surgery this afternoon. Active Medications Hydrocodone Bitart/Acetaminophen (Hydrocodone/Apap 7.5-325mg 1 Each Tab) 1 each PO Q4H PRN PRN Reason: Pain Last Admin: 05/02/22 22:56 Dose: 1 each Albuterol Sulfate (Albuterol Hfa Inhaler) 2 puff INHALATION RT-Q6H PRN PRN Reason: Shortness Of Breath Last Admin: 05/03/22 15:45 Dose: 2 puff Atenolol (Atenolol 25 Mg Tab) 25 mg PO DAILY MARTHA Last Admin: 05/03/22 09:22 Dose: 25 mg Heparin Sodium (Porcine) (Heparin Sodium,Porcine/Pf 5,000 Unit/0.5 Ml Syringe) 5,000 unit SQ Q8HR MARTHA Last Admin: 05/03/22 12:00 Dose: Not Given Hydromorphone HCl (Hydromorphone 1 Mg/Ml 1 Ml Syringe) 1 mg IVP Q4HR PRN PRN Reason: Pain Last Admin: 05/03/22 13:19 Dose: 1 mg Piperacillin Sod/Tazobactam (Sod 3.375 gm/ Sodium Chloride) 100 mls @ 25 mls/hr IVPB Q8HR [facility]; Protocol Last Admin: 05/03/22 15:51 Dose: 25 mls/hr Dextrose/Sodium Chloride (Dextrose 5%-1/2ns Iv Soln) 1,000 mls @ 100 mls/hr IV .Q10H [facility] Last Admin: 05/03/22 11:59 Dose: 100 mls/hr Ketorolac Tromethamine (Ketorolac 15 Mg/Ml 1 Ml Vial) 15 mg IVP Q6HR PRN PRN Reason: Pain Stop: 05/07/22 11:23 Last Admin: 05/03/22 12:05 Dose: 15 mg Levothyroxine Sodium (Levothyroxine 25 Mcg Tab) 25 mcg PO DAILY@0630 [facility] Last Admin: 05/03/22 05:17 Dose: 25 mcg Methocarbamol (Methocarbamol 500 Mg Tab) 500 mg PO QID [facility] Last Admin: 05/03/22 12:00 Dose: 500 mg Montelukast Sodium (Montelukast 10 Mg Tab) 10 mg PO DAILY [facility] Last Admin: 05/03/22 09:22 Dose: 10 mg Multivitamins (Multivitamins, Thera 1 Each Tab) 1 each PO DAILY [facility] Last Admin: 05/03/22 09:14 Dose: Not Given Ondansetron HCl (Ondansetron 4 Mg/2 Ml Vial) 4 mg IVP Q6HR PRN PRN Reason: Nausea And Vomiting Last Admin: 05/03/22 16:45 Dose: 4 mg Pantoprazole Sodium (Pantoprazole 40 Mg Tablet) 40 mg PO AC-[id number] [facility] Last Admin: 05/03/22 09:22 Dose: 40 mg Tiotropium [place] (Tiotropium 2.5 Mcg Inhaler) 2 puff INHALATION RT-DAILY [facility] Last Admin: 05/03/22 09:19 Dose: 2 puff On examination: VITAL SIGNS: [97.8, 59, 18, 111/66, 92% room air] GENERAL APPEARANCE: BMI 31.3, declining in bed slightly uncomfortable HEENT: Normal external appearance of nose and ear. Oral cavity normal EYES: Pupils equal. Conjunctiva normal. NECK: JVD not raised. Mass not palpable. RESPIRATORY: Respiratory effort normal. Lungs clear to auscultation. CARDIOVASCULAR: First and second sounds normal. No edema. ABDOMEN: Soft. Tender, no guarding rigidity. Wound VAC over midline incision lower abdomen. Binder in place. Pizarro catheter.. PSYCHIATRY: Alert and oriented x3. Mood and affect normal. INVESTIGATIONS, reviewed in the clinical context: White count 13.2 hemoglobin 8.6 platelets 1030 sodium 135 potassium 4.1 creatinine 0.8 EKG: Normal sinus rhythm Checks x-ray: Shows NG tube Assessment and plan -Wound dehiscence from recent open abdominal hysterectomy with bowel evisceration. postoperative day #1 exploratory lap, washout and closure. Wound vac in place. Patient to go down to or this afternoon. For mesh placement. -Leukocytosis secondary to above. -Leukocytosis with anemia with severe thrombocytosis. Notes some immature granulocytes in the peripheral film. Possibly from underlying infection.: IV Zosyn. Consult hematology -COPD in a current smoker Albuterol 2 puffs 4 times a day -Essential Hypertension Tenormin 25 mg -Chronic nicotine dependence, tobacco use Nicotine patch -Obesity BMI 31.3 Weight loss measures -Full code Discussed with patient. Add nicotine patch. Consult hematology.
[2022-05-03] MEDS ORDERED: MIDAZOLAM 2 MG/2 ML VIAL IVP ONE (17:03)
[2022-05-03] MEDS ORDERED: fentaNYL (PF) 50 MCG/1 ML VIAL IVP ONE (17:18)
[2022-05-03] MEDS ORDERED: MIDAZOLAM 2 MG/2 ML VIAL ONE (17:28)
[2022-05-03] MEDS ORDERED: LIDOCAINE 2% INJ 20 MG/ML (2 ML VIAL) ONE (17:28)
[2022-05-03] MEDS ORDERED: SUCCINYLCHOLINE CHLORIDE 200 MG/10 ML VIAL IV ONE (17:28)
[2022-05-03] MEDS ORDERED: HYDROmorphone (PF) 1 MG/ML ONE (17:28)
[2022-05-03] MEDS ORDERED: fentaNYL (PF) 50 MCG/ML 2 ML AMP ONE (17:28)
[2022-05-03] MEDS ORDERED: PROPOFOL 10 MG/ML 20 ML VIAL IV ONE (17:28)
[2022-05-03] MEDS: NICOTINE 14MG/24HR PATCH TRANSDERM SCH (18:14)
[2022-05-03] MEDS ORDERED: LACTATED RINGERS 1,000 ML IV ONE (19:03)
--- NOTE | 2022-05-03 19:32 | P.OP ---
Date of Procedure: 05/03/22 Preoperative Diagnosis: bowel evisceration s/p primary repair of fascia with wound vac open abdominal wound Postoperative Diagnosis: bowel evisceration s/p primary repair of fascia with wound vac open abdominal wound Procedure(s) Performed: abdominal wound washout with excision of necrotic subcutaneous tissue, reinforcement of primary closure with onlay Phasix mesh, closure of wound, placement of Prevena wound vac Implants: Phasix mesh Anesthesia: GETA Surgeon: Magali Harkins Estimated Blood Loss (ml): 20 Pathology: none sent Condition: stable Disposition: floor Operative Findings: Well healing repair. Some necrotic subcutaneous tissue along wound edges, which was excised to healthy tissue. Fascial closure reinforced with Phasix mesh. Two 19Fr drains placed & skin/subcutaneous layers closed over mesh & drains. Dressed with Prevena wound vac. Description of Procedure: See dictation for full details.
[2022-05-03] MEDS: ALBUTEROL HFA INHALER INHALATION SCH ×2 (20:32)
[2022-05-04] MEDS: DEXTROSE 5%-0.45% NACL 1,000 ML IV SCH ×3 (00:10→20:37)
[2022-05-04] MEDS: HYDROmorphone 1 MG/ML 1 ML SYRINGE IVP PRN ×4 (02:18→21:57)
[2022-05-04] MEDS: ALBUTEROL HFA INHALER INHALATION SCH ×4 (02:31→20:46)
[2022-05-04] MEDS: LEVOTHYROXINE 25 MCG TAB PO SCH (05:24)
[2022-05-04] MEDS: KETOROLAC 15 MG/ML 1 ML VIAL IVP PRN ×3 (05:26→20:34)
[2022-05-04] MEDS: TIOTROPIUM 2.5 MCG INHALER INHALATION SCH (07:43)
[2022-05-04] MEDS: MONTELUKAST 10 MG TAB PO SCH (08:26)
[2022-05-04] MEDS: NICOTINE 14MG/24HR PATCH TRANSDERM SCH (08:26)
[2022-05-04] MEDS: PANTOPRAZOLE 40 MG TABLET PO SCH (08:26)
[2022-05-04] MEDS: atenoloL 25 MG TAB PO SCH (08:26)
[2022-05-04] MEDS: ASPIRIN 81 MG PO SCH (08:26)
[2022-05-04] MEDS: methocarbamoL 500 MG TAB PO SCH ×4 (08:26→22:36)
[2022-05-04] MEDS: MULTIVITAMINS, THERA 1 EACH TAB PO SCH (08:26)
[2022-05-04] MEDS: HEPARIN SODIUM,PORCINE/PF 5,000 UNIT/0.5 ML SYRINGE SQ SCH ×3 (08:27→23:27)
[2022-05-04] MEDS: HYDROcodone/APAP 7.5-325MG 1 EACH TAB PO PRN (08:34)
[2022-05-04 09:21] LABS: HCT 27.9 % (34.0-46.0); HGB 8.6 gm/dL (11.4-16.0); Hypochromasia Slight; MCH 27.3 pg (25.0-35.0); MCHC 30.8 g/dL (31.0-37.0); MCV 88.4 fL (80.0-100.0); Mean Platelet Volume 7.3; Platelet Count 931 k/uL (150-450); RBC 3.15 m/uL (3.80-5.40); RDW 14.3 % (11.5-15.5); WBC 15.5 k/uL (3.8-10.6)
--- NOTE | 2022-05-04 10:44 | P.PN ---
Subjective Progress Note Date: 05/04/22 Principal diagnosis: bowel evisceration 51F presented to ER with bowel evisceration from recent hysterectomy. Underwent hysterectomy 2 weeks ago at [facility] for uterine fibroids. Endorsed some fluid leaking from incision then this morning after a coughing spell, noticed bowel protruding from incision. She refused to be transferred back to [facility]. 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 Taken to OR day of ER admission for exploratory laparotomy with lysis of adhesions, abdominal washout, primary closure of fascia with wound vac placement. Returned to OR 05/03 for abdominal wound washout with mesh reinforcement of incision, skin closure, placement of Prevena wound vac. Had increased appetite last night pre-operatively. Did will with clear liquids post-operatively with minimal NG output. Passing a lot of flatus. Feeling much better today. Pain controlled. Objective - Vital Signs Vital signs: Vital Signs Temp 98.7 F 05/04/22 07:00 Pulse 93 05/04/22 08:34 Resp 16 05/04/22 08:34 BP 115/79 05/04/22 07:00 Pulse Ox 100 05/04/22 07:00 FiO2 Intake & Output 05/03/22 05/04/22 05/04/22 18:59 06:59 18:59 Intake Total 1100 200 Output Total 800 1420 300 Balance 300 -1220 -300 Intake: IV 1000 200 Intake, IV Titration 100 Amount Piperacillin-Tazobactam 3 100 .375 gm In Sodium Chloride 0.9% 100 ml @ 25 mls/hr IVPB Q8HR [facility] [place] Rx# :[id number] Output: Gastric Drainage 400 550 Urine 400 850 300 Estimated Blood Loss 20 Other: Voiding Method Indwelling Catheter Indwelling Catheter Indwelling Catheter - Constitutional General appearance: Present: cooperative, no acute distress - EENT Eyes: Present: anicteric sclerae ENT: Present: hearing grossly normal - Neck Details: supple - Respiratory Details: non labored breathing, normal effort & excursion - Cardiovascular Rhythm: regular - Gastrointestinal Gastrointestinal Comment(s): Prevena in place, ADAM x2 General gastrointestinal: Present: soft. Absent: distended, rigid, tenderness - Genitourinary Genitourinary Comment(s): collins in place with yellow urine - Integumentary Integumentary Comment(s): dry, no diaphoresis - Neurologic Neurologic Comment(s): no gross deficits - Musculoskeletal Musculoskeletal Comment(s): no LE edema, no calf pain - Psychiatric Psychiatric Comment(s): cooperative Psychiatric: Present: appropriate affect - Labs CBC & Chem 7: 05/04/22 08:36 05/03/22 04:54 Labs: Abnormal Lab Results - Last 24 Hours (Table) 05/03/22 05/04/22 Range/Units 16:24 08:36 WBC 15.5 H (3.8-10.6) k/uL RBC 3.15 L (3.80-5.40) m/uL Hgb 8.6 L (11.4-16.0) gm/dL Hct 27.9 L (34.0-46.0) % MCHC 30.8 L (31.0-37.0) g/dL Plt Count 931 H (150-450) k/uL POC Glucose (mg/dL) 115 H (70-110) mg/dL Microbiology - Last 24 Hours (Table) 05/01/22 09:25 Blood Culture - Preliminary Blood No Growth after 48 hours 05/01/22 09:10 Blood Culture - Preliminary Blood No Growth after 48 hours Assessment and Plan Assessment: small bowel evisceration incisional wound dehiscence recent hysterectomy at [facility] s/p exploratory laparotomy with abdominal washout, closure of fasica & application of wound vac s/p abdominal wound washout, excision of necrotic subcutaneous tissue, reinforcement of primary fascial repair with mesh, skin closure with Prevena wound vac application leukocyosis, likely reactive from surgery Plan: no surgery needed for OK for midline for IV access PT/OT consults, increase activity & encourage OOB today OK to trial fulls, if does well will advance to softs dennis YU out today Time with Patient: Less than 30
[2022-05-04] MEDS: PIPERACILLIN-TAZOBACTAM 3.375 GM in SODIUM CHLORIDE 0.9% 100 ML IVPB SCH ×3 (11:23→23:27)
--- NOTE | 2022-05-04 12:22 | P.PN ---
Progress Note - Text Progress Note Date: 05/04/22 31-year-old female is admitted for wound dehiscence after coughing spell. 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 Patient has clear serous drainage beyond which examination is limited because of evisceration of the bowel, patient has a dressing over the dehiscence wound. Patient was given Zosyn in ER. Patient is going to OR. She had recent abdominal hysterectomy for uterine fibroids. 05/02/2022 Patient evaluated today postoperative day #1 eploratory laporatomy with adbominal washout, lysis of adhesions, primary closure and wound vac placement. Patient had bowel evisceration. Patient is currently afebrile. Has white count of 26.33 today and will remain on IV zosyn. Blood culture pending. Wound vac in place with no air leak and patient is wearing abdominal binder. Platelet count of 1095 today. Which will be repeated and monitored. Patient does continue on nasal cannula and chest xray done which is negative for consolidation, effusion or pneumothorax. Patient has NG tube in place with 700 mls of dark brown gastric output. Currently NPO. Patient is maintained on D5 0.45 normal saline at 100 mls/hr. Urine output 1.4 L in the last 24 hours. 05/03/2022: I assumed care of the patient today. Declining in bed. Has a wound VAC in place. NG tube to suction. Has been at the operative site. No flatus. Pending surgery this afternoon. 05/04/2022: Underwent debrided with cleaning off incision tissue yesterday. m esh was placed. Wound VAC placed. Getting an accu- cath today. No nausea. Pain better control. Await hematology consult. Passing flatus Active Medications Hydrocodone Bitart/Acetaminophen (Hydrocodone/Apap 7.5-325mg 1 Each Tab) 1 each PO Q4H PRN PRN Reason: Pain Last Admin: 05/04/22 08:34 Dose: 1 each Albuterol Sulfate (Albuterol Hfa Inhaler) 2 puff INHALATION RT-Q6H MARTHA Last Admin: 05/04/22 11:24 Dose: 2 puff Aspirin (Aspirin 81 Mg) 81 mg PO DAILY MARTHA Last Admin: 05/04/22 08:26 Dose: 81 mg Atenolol (Atenolol 25 Mg Tab) 25 mg PO DAILY [facility] Last Admin: 05/04/22 08:26 Dose: 25 mg Heparin Sodium (Porcine) (Heparin Sodium,Porcine/Pf 5,000 Unit/0.5 Ml Syringe) 5,000 unit SQ Q8HR [facility] Last Admin: 05/04/22 08:27 Dose: Not Given Hydromorphone HCl (Hydromorphone 1 Mg/Ml 1 Ml Syringe) 1 mg IVP Q4HR PRN PRN Reason: Pain Last Admin: 05/04/22 11:24 Dose: 1 mg Piperacillin Sod/Tazobactam (Sod 3.375 gm/ Sodium Chloride) 100 mls @ 25 mls/hr IVPB Q8HR [facility]; Protocol Last Admin: 05/04/22 11:23 Dose: 25 mls/hr Dextrose/Sodium Chloride (Dextrose 5%-1/2ns Iv Soln) 1,000 mls @ 100 mls/hr IV .Q10H [facility] Last Admin: 05/04/22 00:10 Dose: 100 mls/hr Ketorolac Tromethamine (Ketorolac 15 Mg/Ml 1 Ml Vial) 15 mg IVP Q6HR PRN PRN Reason: Pain Stop: 05/07/22 11:23 Last Admin: 05/04/22 05:26 Dose: 15 mg Levothyroxine Sodium (Levothyroxine 25 Mcg Tab) 25 mcg PO DAILY@0630 [facility] Last Admin: 05/04/22 05:24 Dose: 25 mcg Methocarbamol (Methocarbamol 500 Mg Tab) 500 mg PO QID [facility] Last Admin: 05/04/22 08:26 Dose: 500 mg Montelukast Sodium (Montelukast 10 Mg Tab) 10 mg PO DAILY [facility] Last Admin: 05/04/22 08:26 Dose: 10 mg Multivitamins (Multivitamins, Thera 1 Each Tab) 1 each PO DAILY [facility] Last Admin: 05/04/22 08:26 Dose: 1 each Nicotine (Nicotine 14mg/24hr Patch) 1 patch TRANSDERM DAILY [facility] Last Admin: 05/04/22 08:26 Dose: 1 patch Ondansetron HCl (Ondansetron 4 Mg/2 Ml Vial) 4 mg IVP Q6HR PRN PRN Reason: Nausea And Vomiting Last Admin: 05/03/22 16:45 Dose: 4 mg Pantoprazole Sodium (Pantoprazole 40 Mg Tablet) 40 mg PO AC-BRKFST [facility] Last Admin: 05/04/22 08:26 Dose: 40 mg Tiotropium [place] (Tiotropium 2.5 Mcg Inhaler) 2 puff INHALATION RT-DAILY [facility] Last Admin: 05/04/22 07:43 Dose: 2 puff On examination: VITAL SIGNS: 98.2, 95, 18, 134/81, 95% room air GENERAL APPEARANCE:reclining in bed , not uncomfortable HEENT: Normal external appearance of nose and ear. Oral cavity normal EYES: Pupils equal. Conjunctiva normal. NECK: JVD not raised. Mass not palpable. RESPIRATORY: Respiratory effort normal. Lungs clear to auscultation. CARDIOVASCULAR: First and second sounds normal. No edema. ABDOMEN: Soft. Tender, no guarding rigidity. Wound VAC over midline incision lower abdomen. Binder in place. Pizarro catheter.. PSYCHIATRY: Alert and oriented x3. Mood and affect normal. INVESTIGATIONS, reviewed in the clinical context: May 04: White count 15.5 hemoglobin 8.6 platelets 931 White count 13.2 hemoglobin 8.6 platelets 1030 sodium 135 potassium 4.1 creatinine 0.8 EKG: Normal sinus rhythm Checks x-ray: Shows NG tube Assessment and plan -Wound dehiscence from recent open abdominal hysterectomy with bowel evisceration. postoperative day #1 exploratory lap, washout and closure. Wound vac in place. May 03: Abdominal wound washout with excision of necrotic subcutaneous tissue, reinforcement of primary closure with on the face 6 mesh, and placement of prevena wound vacs -Leukocytosis secondary to above. -Leukocytosis with anemia with severe thrombocytosis. Notes some immature granulocytes in the peripheral film. Possibly from underlying infection.: IV Zosyn. Consult hematology -COPD in a current smoker Albuterol 2 puffs 4 times a day -Essential Hypertension Tenormin 25 mg -Chronic nicotine dependence, tobacco use Nicotine patch -Obesity BMI 31.3 Weight loss measures -Full code Advanced to full liquid diet by surgery. IV Zosyn. Hematology was consulted. Other medications to continue. Activity as tolerated.
[2022-05-04 16:37] LABS: Magnesium 2.2 mg/dL (1.5-2.4); Phosphorus 3.2 mg/dL (2.4-5.1)
[2022-05-04 16:40] LABS: African American GFR (CKD) 121.5 (60.0-200.0); Anion Gap 18.6 mmol/L (10.00-18.00); BUN/Creat Ratio 17.17 Ratio (12.00-20.00); Blood Urea Nitrogen 10.3 mg/dL (9.0-27.0); Calcium 8.5 mg/dL (8.7-10.3); Carbon Dioxide 18.4 mmol/L (20.0-27.5); Non-African American GFR(CKD) 104.8 (60.0-200.0); Potassium 4.3 mmol/L (3.5-5.5)
--- NOTE | 2022-05-04 17:14 | P.CONS ---
History of Present Illness - Reason for Consult Consult date: 05/04/22 abnormal CBC Requesting physician: Dre Beauchamp - Chief Complaint wound problem - History of Present Illness Patient is a 51-year-old female who had a hysterectomy 2 weeks ago for treatment of uterine fibroids. We were consulted for abnormal CBC. She presented to the ER for wound dehiscence after a coughing spell. She reports history of anemia due to vaginal bleeding, and is on oral iron supplementation. Pt went to surgery for washout of wound and is on IV abx. Wound vac in place. She denies abdominal pain at this time. Denies n,v,d, fever and chills. Denies chest pain, SOB, palpitations. Denies hx of blood clotting disorders. No other reported complaints at this time. Review of Systems 10 point ROS is negative except as stated in HPI Past Medical History Past Medical History: Asthma, Hypertension History of Any Multi-Drug Resistant Organisms: None Reported Past Surgical History: Cholecystectomy, Hysterectomy Additional Past Surgical History / Comment(s): x 2. Past Psychological History: No Psychological Hx Reported Smoking Status: Current every day smoker Past Alcohol Use History: None Reported Past Drug Use History: Marijuana Medications and Allergies Home Medications Medication Instructions Recorded Confirmed Type Albuterol Sulfate [Ventolin HFA] 1 - 2 puff INHALATION RT-Q6H PRN 05/01/22 05/01/22 History Cetirizine HCl 10 mg PO DAILY 05/01/22 05/01/22 History Docusate [Colace] 100 mg PO BID PRN 05/01/22 05/01/22 History Estradiol Cream [Estrace Cream 1 applic VAGINAL DIRECTED 05/01/22 05/01/22 History 0.01%] Ferrous Sulfate [Feosol] 325 mg PO DAILY 05/01/22 05/01/22 History HYDROcodone/APAP 7.5-325MG [[place] 1 tab PO Q4H PRN 05/01/22 05/01/22 History 7.5-325] Ibuprofen [Motrin] 800 mg PO Q8H PRN 05/01/22 05/01/22 History Levothyroxine Sodium [Synthroid] 25 mcg PO DAILY 05/01/22 05/01/22 History Losartan Potassium 100 mg PO DAILY 05/01/22 05/01/22 History Montelukast [Singulair] 10 mg PO DAILY 05/01/22 05/01/22 History Multivitamins, Thera [Multivitamin 1 tab PO DAILY 05/01/22 05/01/22 History (formulary)] Omeprazole 20 mg PO DAILY 05/01/22 05/01/22 History Tiotropium [place] [Spiriva] 18 mcg INHALATION RT-DAILY 05/01/22 05/01/22 History amLODIPine [Norvasc] 10 mg PO DAILY 05/01/22 05/01/22 History atenoloL [Tenormin] 25 mg PO DAILY 05/01/22 05/01/22 History Allergies Allergy/AdvReac Type Severity Reaction Status Date / Time Tetracyclines AdvReac Anaphylaxis Verified 05/01/22 10:41 Physical Exam Vitals: Vital Signs Temp Pulse Resp BP Pulse Ox 05/04/22 13:35 98.6 F 92 16 123/80 100 05/04/22 11:10 98.2 F 95 18 134/81 95 05/04/22 08:34 93 16 05/04/22 07:00 98.7 F 93 16 115/79 100 05/04/22 01:35 97.9 F 99 16 147/85 96 05/03/22 20:32 92 L 05/03/22 20:30 97.9 F 97 16 132/82 92 L 05/03/22 20:15 100 16 140/71 98 05/03/22 20:00 98 16 127/65 93 L 05/03/22 19:44 100 16 131/66 94 L 05/03/22 19:26 107 H 16 121/71 94 L 05/03/22 17:12 100 16 133/67 98 Intake and Output 05/04/22 05/04/22 05/04/22 06:59 14:59 22:59 Output Total 900 516 Balance -900 -516 Output: Gastric Drainage 550 Drainage 215 Left Lower Abdomen 120 Right Lower Abdomen 95 Urine 350 301 Other: Voiding Method Indwelling Catheter # Voids 2 - Constitutional General appearance: average body habitus, no acute distress - EENT Eyes: anicteric sclerae, EOMI ENT: hearing grossly normal - Respiratory Respiratory: bilateral: CTA - Cardiovascular Rhythm: regular Heart sounds: normal: S1, S2 Abnormal Heart Sounds: no systolic murmur, no diastolic murmur, no rub, no S3 Gallop, no S4 Gallop, no click, no other - Gastrointestinal wound vac in place, elastic binder and dressing in place - Integumentary Integumentary: normal - Neurologic grossly intact - Musculoskeletal Musculoskeletal: strength equal bilaterally - Psychiatric Psychiatric: A&O x's 3, appropriate affect, intact judgment & insight Results CBC & Chem 7: 05/04/22 08:36 05/04/22 08:36 Labs: Abnormal Lab Results - Last 24 Hours (Table) 05/04/22 Range/Units 08:36 WBC 15.5 H (3.8-10.6) k/uL RBC 3.15 L (3.80-5.40) m/uL Hgb 8.6 L (11.4-16.0) gm/dL Hct 27.9 L (34.0-46.0) % MCHC 30.8 L (31.0-37.0) g/dL Plt Count 931 H (150-450) k/uL Microbiology - Last 24 Hours (Table) 05/01/22 09:25 Blood Culture - Preliminary Blood No Growth after 72 hours 05/01/22 09:10 Blood Culture - Preliminary Blood No Growth after 72 hours Chest x-ray: report reviewed Assessment and Plan (1) Thrombocytosis Current Visit: Yes Status: Acute Priority: High Code(s): D75.839 - THROM BOCYTOSIS, UNSPECIFIED SNOMED Code(s): 4359405 Plan: Thrombocytosis: -Platelets elevated, 931,000 today -Likely reactive due to recent abdominal surgery and dehiscence. Will check iron studies, as both iron deficiency and inflammatory processes can cause thromobocytosis. If iron studies show JHOAN, will speak with surgical team to see if they believe patient has acute infection of surgical site, if not will plan for IV iron, otherwise will hold iron during acute infection. -We will hold further workup for thrombocytosis at this time do to acute inflammatory state, as this can give false workup. Will plan for patient to f/u in clinic in 4-5 weeks once recovered and further workup will be ordered -Daily aspirin added -Will continue to monitor CBC attests: I have performed H&P and developed impression and plan of care for patient, discussed with dictator. I agree with dictated note, documented as a scribe
[2022-05-04 18:33] LABS: % Iron Saturation 4.61 (12.00-45.00); Ferritin 92.3 ng/mL (10.0-291.0)
[2022-05-05] MEDS: ALBUTEROL HFA INHALER INHALATION SCH ×4 (01:10→20:08)
[2022-05-05] MEDS: HYDROmorphone 1 MG/ML 1 ML SYRINGE IVP PRN ×5 (01:59→18:52)
[2022-05-05] MEDS: LEVOTHYROXINE 25 MCG TAB PO SCH (05:39)
[2022-05-05] MEDS: KETOROLAC 15 MG/ML 1 ML VIAL IVP PRN ×3 (05:39→20:30)
[2022-05-05] MEDS: PANTOPRAZOLE 40 MG TABLET PO SCH (05:39)
[2022-05-05] MEDS: DEXTROSE 5%-0.45% NACL 1,000 ML IV SCH ×2 (06:51→16:35)
[2022-05-05 07:25] LABS: Basophils # (A) 0.1 k/uL (0-0.2); Basophils % (A) 0 %; Eosinophils # (A) 0.5 k/uL (0-0.7); Eosinophils % (A) 4 %; HCT 26.2 % (34.0-46.0); HGB 8.1 gm/dL (11.4-16.0); Hypochromasia Slight; Lymphocytes # (A) 1.2 k/uL (1.0-4.8); Lymphocytes % (A) 9 %; MCH 26.9 pg (25.0-35.0); MCHC 30.9 g/dL (31.0-37.0); Mean Platelet Volume 7.1; Monocytes # (A) 0.6 k/uL (0-1.0); Monocytes % (A) 5 %; Neutrophils # (A) 10.9 k/uL (1.3-7.7); Neutrophils % (A) 81 %; Platelet Count 905 k/uL (150-450); RBC 3.02 m/uL (3.80-5.40); RDW 14.3 % (11.5-15.5); WBC 13.5 k/uL (3.8-10.6)
[2022-05-05] MEDS: MONTELUKAST 10 MG TAB PO SCH (08:16)
[2022-05-05] MEDS: MULTIVITAMINS, THERA 1 EACH TAB PO SCH (08:16)
[2022-05-05] MEDS: methocarbamoL 500 MG TAB PO SCH ×4 (08:16→20:30)
[2022-05-05] MEDS: NICOTINE 14MG/24HR PATCH TRANSDERM SCH (08:16)
[2022-05-05] MEDS: ASPIRIN 81 MG PO SCH (08:16)
[2022-05-05] MEDS: atenoloL 25 MG TAB PO SCH (08:17)
[2022-05-05] MEDS: HEPARIN SODIUM,PORCINE/PF 5,000 UNIT/0.5 ML SYRINGE SQ SCH ×3 (08:17→23:46)
[2022-05-05] MEDS: PIPERACILLIN-TAZOBACTAM 3.375 GM in SODIUM CHLORIDE 0.9% 100 ML IVPB SCH ×3 (08:18→23:46)
[2022-05-05] MEDS: TIOTROPIUM 2.5 MCG INHALER INHALATION SCH (09:25)
[2022-05-05 10:07] LABS: Anion Gap 10.9 mmol/L (10.00-18.00); BUN/Creat Ratio 16.97 Ratio (12.00-20.00); Blood Urea Nitrogen 10.3 mg/dL (9.0-27.0); Calcium 8.3 mg/dL (8.7-10.3); Carbon Dioxide 24.1 mmol/L (20.0-27.5); Non-African American GFR(CKD) 104.4 (60.0-200.0); Phosphorus 2.9 mg/dL (2.4-5.1); Potassium 4.5 mmol/L (3.5-5.5)
--- NOTE | 2022-05-05 11:57 | P.PN ---
Subjective Progress Note Date: 05/05/22 Principal diagnosis: thrombocytosis, wound problem Upon visit today, pt is resting comfortably in bed. Denies pain at this time. Wound vac in place. No other reported complaints Objective - Vital Signs Vital signs: Vital Signs Temp 98.7 F 05/05/22 06:45 Pulse 102 H 05/05/22 06:45 Resp 18 05/05/22 06:45 BP 146/89 05/05/22 06:45 Pulse Ox 96 05/05/22 09:25 FiO2 Intake & Output 05/04/22 05/05/22 05/05/22 18:59 06:59 18:59 Output Total 516 90 Balance -516 -90 Output: Drainage 215 90 Left Lower Abdomen 120 20 Right Lower Abdomen 95 70 Urine 301 Other: Voiding Method Toilet Toilet # Voids 2 3 1 # Bowel Movements 1 - Constitutional General appearance: Present: average body habitus, no acute distress - EENT Eyes: Present: anicteric sclerae, EOMI ENT: Present: hearing grossly normal - Respiratory Details: breathing is even and unlabored - Cardiovascular Details: skin warm and dry - Gastrointestinal Gastrointestinal Comment(s): wound vac in place - Integumentary Integumentary: Present: pale - Neurologic Neurologic Comment(s): grossly intact - Musculoskeletal Musculoskeletal: Present: strength equal bilaterally - Psychiatric Psychiatric: Present: A&O x's 3, appropriate affect, intact judgment & insight - Labs CBC & Chem 7: 05/05/22 06:34 05/05/22 06:34 Labs: Abnormal Lab Results - Last 24 Hours (Table) 05/04/22 05/04/22 05/05/22 Range/Units 08:36 11:18 06:34 WBC 13.5 H (3.8-10.6) k/uL RBC 3.02 L (3.80-5.40) m/uL Hgb 8.1 L (11.4-16.0) gm/dL Hct 26.2 L (34.0-46.0) % MCHC 30.9 L (31.0-37.0) g/dL Plt Count 905 H (150-450) k/uL Neutrophils # 10.9 H (1.3-7.7) k/uL Carbon Dioxide 18.4 L (20.0-27.5) mmol/L Anion Gap 18.60 H (10.00-18.00) mmol/L Calcium 8.5 L (8.7-10.3) mg/dL Iron 11 L (50-170) ug/dL % Saturation 4.61 L (12.00-45.00) Transferrin 169.0 L (204.0-354.0) mg/dL 05/05/22 Range/Units 06:34 WBC (3.8-10.6) k/uL RBC (3.80-5.40) m/uL Hgb (11.4-16.0) gm/dL Hct (34.0-46.0) % MCHC (31.0-37.0) g/dL Plt Count (150-450) k/uL Neutrophils # (1.3-7.7) k/uL Carbon Dioxide (20.0-27.5) mmol/L Anion Gap (10.00-18.00) mmol/L Calcium 8.3 L (8.7-10.3) mg/dL Iron (50-170) ug/dL % Saturation (12.00-45.00) Transferrin (204.0-354.0) mg/dL Microbiology - Last 24 Hours (Table) 05/01/22 09:25 Blood Culture - Preliminary Blood No Growth after 96 hours 05/01/22 09:10 Blood Culture - Preliminary Blood No Growth after 96 hours Assessment and Plan (1) Thrombocytosis Current Visit: Yes Status: Acute Priority: High Code(s): D75.839 - THROMBOCYTOSIS, UNSPECIFIED SNOMED Code(s): 8116390 (2) Iron deficiency anemia Current Visit: Yes Status: Acute Priority: Medium Code(s): D50.9 - IRON DEFICIENCY ANEMIA, UNSPECIFIED SNOMED Code(s): 84107300 Plan: Thrombocytosis/anemia: -Platelets 905,000 today, trending down -Likely reactive due to recent abdominal surgery and dehiscence. Will check iron studies, as both iron deficiency and inflammatory processes can cause thromobocytosis. Iron studies consistent with JHOAN. Spoke with Surgery and they do not believe this is infectious in nature, and are ok with starting iron transfusions. 3 dose IV iron ordered. Hemoglobin stable, 8.1 today. -We will hold further workup for thrombocytosis at this time do to acute inflammatory state, as this can give false workup. Will plan for patient to f/u in clinic in 4-5 weeks once recovered and further workup will be ordered. Appt in discharge plan -Daily aspirin added -Will continue to monitor CBC attests: I have performed H&P and developed impression and plan of care for patient, discussed with dictator. I agree with dictated note, documented as a scribe
[2022-05-05] MEDS: HYDROcodone/APAP 7.5-325MG 1 EACH TAB PO PRN ×3 (12:05→20:30)
[2022-05-05] MEDS: SODIUM FERRIC GLUCONAT-SUCROSE 125 MG in SODIUM CHLORIDE 0.9% 100 ML IVPB SCH (13:29)
--- NOTE | 2022-05-05 14:10 | P.PN ---
Progress Note - Text Progress Note Date: 05/05/22 31-year-old female is admitted for wound dehiscence after coughing spell. 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 Patient has clear serous drainage beyond which examination is limited because of evisceration of the bowel, patient has a dressing over the dehiscence wound. Patient was given Zosyn in ER. Patient is going to OR. She had recent abdominal hysterectomy for uterine fibroids. 05/02/2022 Patient evaluated today postoperative day #1 eploratory laporatomy with adbominal washout, lysis of adhesions, primary closure and wound vac placement. Patient had bowel evisceration. Patient is currently afebrile. Has white count of 26.33 today and will remain on IV zosyn. Blood culture pending. Wound vac in place with no air leak and patient is wearing abdominal binder. Platelet count of 1095 today. Which will be repeated and monitored. Patient does continue on nasal cannula and chest xray done which is negative for consolidation, effusion or pneumothorax. Patient has NG tube in place with 700 mls of dark brown gastric output. Currently NPO. Patient is maintained on D5 0.45 normal saline at 100 mls/hr. Urine output 1.4 L in the last 24 hours. 05/03/2022: I assumed care of the patient today. Declining in bed. Has a wound VAC in place. NG tube to suction. Has been at the operative site. No flatus. Pending surgery this afternoon. 05/04/2022: Underwent debrided with cleaning off incision tissue yesterday. m esh was placed. Wound VAC placed. Getting an accu- cath today. No nausea. Pain better control. Await hematology consult. Passing flatus 05/05/2022: Tolerating a soft diet. Had a BM. Did walk in the hallway. Wound VAC in place. Pain better controlled. No nausea vomiting. Patient was seen by hematology. [place] to be reactive thrombocytosis. Aspirin was added. Iron deficient anemia. IV iron being given. Active Medications Hydrocodone Bitart/Acetaminophen (Hydrocodone/Apap 7.5-325mg 1 Each Tab) 1 each PO Q4H PRN PRN Reason: Pain Last Admin: 05/05/22 12:05 Dose: 1 each Albuterol Sulfate (Albuterol Hfa Inhaler) 2 puff INHALATION RT-Q6H [facility] Last Admin: 05/05/22 09:25 Dose: 2 puff Aspirin (Aspirin 81 Mg) 81 mg PO DAILY [facility] Last Admin: 05/05/22 08:16 Dose: 81 mg Atenolol (Atenolol 25 Mg Tab) 25 mg PO DAILY [facility] Last Admin: 05/05/22 08:17 Dose: 25 mg Heparin Sodium (Porcine) (Heparin Sodium,Porcine/Pf 5,000 Unit/0.5 Ml Syringe) 5,000 unit SQ Q8HR [facility] Last Admin: 05/05/22 08:17 Dose: 5,000 unit Hydromorphone HCl (Hydromorphone 1 Mg/Ml 1 Ml Syringe) 1 mg IVP Q4HR PRN PRN Reason: Pain Last Admin: 05/05/22 10:19 Dose: 1 mg Piperacillin Sod/Tazobactam (Sod 3.375 gm/ Sodium Chloride) 100 mls @ 25 mls/hr IVPB Q8HR [facility]; Protocol Last Admin: 05/05/22 08:18 Dose: 25 mls/hr Dextrose/Sodium Chloride (Dextrose 5%-1/2ns Iv Soln) 1,000 mls @ 100 mls/hr IV .Q10H [facility] Last Admin: 05/05/22 06:51 Dose: Not Given Ferric Sodium Gluconate 125 mg (/ Sodium Chloride) 110 mls @ 100 mls/hr IVPB DAILY [facility] Stop: 05/07/22 10:05 Last Admin: 05/05/22 13:29 Dose: 100 mls/hr Ketorolac Tromethamine (Ketorolac 15 Mg/Ml 1 Ml Vial) 15 mg IVP Q6HR PRN PRN Reason: Pain Stop: 05/07/22 11:23 Last Admin: 05/05/22 13:29 Dose: 15 mg Levothyroxine Sodium (Levothyroxine 25 Mcg Tab) 25 mcg PO DAILY@0630 [facility] Last Admin: 05/05/22 05:39 Dose: 25 mcg Methocarbamol (Methocarbamol 500 Mg Tab) 500 mg PO QID [facility] Last Admin: 05/05/22 08:16 Dose: 500 mg Montelukast Sodium (Montelukast 10 Mg Tab) 10 mg PO DAILY [facility] Last Admin: 05/05/22 08:16 Dose: 10 mg Multivitamins (Multivitamins, Thera 1 Each Tab) 1 each PO DAILY [facility] Last Admin: 05/05/22 08:16 Dose: 1 each Nicotine (Nicotine 14mg/24hr Patch) 1 patch TRANSDERM DAILY [facility] Last Admin: 05/05/22 08:16 Dose: 1 patch Ondansetron HCl (Ondansetron 4 Mg/2 Ml Vial) 4 mg IVP Q6HR PRN PRN Reason: Nausea And Vomiting Last Admin: 05/03/22 16:45 Dose: 4 mg Pantoprazole Sodium (Pantoprazole 40 Mg Tablet) 40 mg PO AC-BRKFST [facility] Last Admin: 05/05/22 05:39 Dose: 40 mg Tiotropium [place] (Tiotropium 2.5 Mcg Inhaler) 2 puff INHALATION RT-DAILY [facility] Last Admin: 05/05/22 09:25 Dose: 2 puff On examination: VITAL SIGNS: 98.7, 102, 18, 146/89, 92% room air GENERAL APPEARANCE:reclining in bed , comfortable HEENT: Normal external appearance of nose and ear. Oral cavity normal EYES: Pupils equal. Conjunctiva normal. NECK: JVD not raised. Mass not palpable. RESPIRATORY: Respiratory effort normal. Lungs clear to auscultation. CARDIOVASCULAR: First and second sounds normal. No edema. ABDOMEN: Soft. Mild Tender, no guarding rigidity. Wound VAC over midline incision lower abdomen. Binder in place. Pizarro catheter.. PSYCHIATRY: Alert and oriented x3. Mood and affect normal. INVESTIGATIONS, reviewed in the clinical context: May 05: White count 13.5 hemoglobin 8.1 platelets 905 potassium 4.5 creatinine 0.6 I did 11 TIBC 237% saturation 4.61 transferrin 169 May 04: White count 15.5 hemoglobin 8.6 platelets 931 White count 13.2 hemoglobin 8.6 platelets 1030 sodium 135 potassium 4.1 creatinine 0.8 EKG: Normal sinus rhythm Checks x-ray: Shows NG tube Assessment and plan -Wound dehiscence from recent open abdominal hysterectomy with bowel evisceration. postoperative day #1 exploratory lap, washout and closure. Wound vac in place. May 03: Abdominal wound washout with excision of necrotic subcutaneous tissue, reinforcement of primary closure with mesh, and placement of prevena wound vacs -Leukocytosis secondary to above. -Leukocytosis with anemia with severe thrombocytosis. Secondary to iron deficiency anemia and abdominal wound IV Zosyn. Seen by hematology -COPD in a current smoker Albuterol 2 puffs 4 times a day -Iron deficiency anemia IV Ferrlecit -Essential Hypertension Tenormin 25 mg -Chronic nicotine dependence, tobacco use Nicotine patch -Obesity BMI 31.3 Weight loss measures -Full code Advanced to regular diet. Has been ambulating. Discussed with patient. Hopefully discharge tomorrow. IV Zosyn
[2022-05-05] MEDS: DOCUSATE 100 MG CAP PO SCH (20:30)
[2022-05-06] MEDS: ALBUTEROL HFA INHALER INHALATION SCH ×3 (00:42→15:04)
[2022-05-06] MEDS: DEXTROSE 5%-0.45% NACL 1,000 ML IV SCH ×2 (03:38→13:44)
[2022-05-06] MEDS: HYDROcodone/APAP 7.5-325MG 1 EACH TAB PO PRN ×2 (03:51→14:05)
[2022-05-06] MEDS: HYDROmorphone 1 MG/ML 1 ML SYRINGE IVP PRN ×2 (03:51→08:21)
[2022-05-06] MEDS: LEVOTHYROXINE 25 MCG TAB PO SCH (05:56)
[2022-05-06] MEDS: PANTOPRAZOLE 40 MG TABLET PO SCH (05:56)
[2022-05-06] MEDS: NICOTINE 14MG/24HR PATCH TRANSDERM SCH (08:08)
[2022-05-06] MEDS: ASPIRIN 81 MG PO SCH (08:08)
[2022-05-06] MEDS: HEPARIN SODIUM,PORCINE/PF 5,000 UNIT/0.5 ML SYRINGE SQ SCH (08:08)
[2022-05-06] MEDS: PIPERACILLIN-TAZOBACTAM 3.375 GM in SODIUM CHLORIDE 0.9% 100 ML IVPB SCH (08:09)
[2022-05-06] MEDS: MULTIVITAMINS, THERA 1 EACH TAB PO SCH (08:09)
[2022-05-06] MEDS: methocarbamoL 500 MG TAB PO SCH ×2 (08:09→12:20)
[2022-05-06] MEDS: atenoloL 25 MG TAB PO SCH (08:09)
[2022-05-06] MEDS: MONTELUKAST 10 MG TAB PO SCH (08:09)
[2022-05-06] MEDS: DOCUSATE 100 MG CAP PO SCH (08:09)
[2022-05-06] MEDS: TIOTROPIUM 2.5 MCG INHALER INHALATION SCH (08:35)
[2022-05-06] MEDS ORDERED: LOSARTAN 50 MG TAB PO SCH (09:45)
[2022-05-06] MEDS ORDERED: NON FORMULARY DRUG (Losartan Potassium [Losartan Potassium] 100 MG Tablet) PO SCH (10:00)
[2022-05-06] MEDS: KETOROLAC 15 MG/ML 1 ML VIAL IVP PRN (11:09)
--- NOTE | 2022-05-06 11:21 | P.PN ---
Subjective Progress Note Date: 05/06/22 Principal diagnosis: thrombocytosis, wound problem Upon visit today, pt is resting comfortably in bed. Denies pain at this time. Wound vac in place. No other reported complaints Objective - Vital Signs Vital signs: Vital Signs Temp 97.7 F 05/06/22 10:18 Pulse 92 05/06/22 10:28 Resp 14 05/06/22 10:28 BP 134/77 05/06/22 10:18 Pulse Ox 96 05/06/22 10:18 FiO2 21 05/06/22 08:37 Intake & Output 05/05/22 05/06/22 05/06/22 18:59 06:59 18:59 Output Total 95 Balance -95 Output: Drainage 95 Anterior Abdomen 0 Left Lower Abdomen 15 Right Lower Abdomen 80 Other: Voiding Method Toilet # Voids 1 2 # Bowel Movements 1 - Constitutional General appearance: Present: average body habitus, no acute distress - EENT Eyes: Present: anicteric sclerae, EOMI ENT: Present: hearing grossly normal - Respiratory Details: breathing is even and unlabored - Cardiovascular Details: skin warm and dry - Integumentary Integumentary: Present: pale - Neurologic Neurologic Comment(s): grossly intact - Musculoskeletal Musculoskeletal: Present: strength equal bilaterally - Psychiatric Psychiatric: Present: A&O x's 3, appropriate affect, intact judgment & insight - Labs CBC & Chem 7: 05/05/22 06:34 05/05/22 06:34 Labs: Microbiology - Last 24 Hours (Table) 05/01/22 09:25 Blood Culture - Preliminary Blood No Growth after 96 hours 05/01/22 09:10 Blood Culture - Preliminary Blood No Growth after 96 hours Assessment and Plan (1) Thrombocytosis Current Visit: Yes Status: Acute Priority: High Code(s): D75.839 - THROMBOCYTOSIS, UNSPECIFIED SNOMED Code(s): 2962618 (2) Iron deficiency anemia Current Visit: Yes Status: Acute Priority: Medium Code(s): D50.9 - IRON DEFICIENCY ANEMIA, UNSPECIFIED SNOMED Code(s): 48700855 Plan: Thrombocytosis/anemia: -Platelets 905,000 yesterday, todays pending. Platelets have been trending down daily -Likely reactive due to recent abdominal surgery and dehiscence. Iron studies were ordered, as both iron deficiency and inflammatory processes can be causes of thromobocytosis. Iron studies were consistent with JHOAN. Spoke with Surgery and they do not believe this is infectious in nature, and are ok with starting iron transfusions. 3 dose IV iron ordered. Hemoglobin stable, 8.1 yesterday. -We will hold further workup for thrombocytosis at this time do to acute inflammatory state, as this can give false workup. Will plan for patient to f/u in clinic in 4-5 weeks once recovered and further workup will be ordered. Appt in discharge plan -Daily aspirin added -Will continue to monitor CBC. Please transfuse for hemoglobin less than 7 or if symptomatic attests: I have performed H&P and developed impression and plan of care for patient, discussed with dictator. I agree with dictated note, documented as a scribe
[2022-05-06 11:30] LABS: Basophils # (A) 0.06 X 10*3/uL (0.00-0.10); Basophils % (A) 0.4 %; Eosinophils # (A) 0.59 X 10*3/uL (0.04-0.35); Eosinophils % (A) 4.2 %; HCT 26.5 % (37.2-46.3); Lymphocytes # (A) 1.29 X 10*3/uL (0.90-5.00); Lymphocytes % (A) 9.1 %; MCH 26.8 pg (27.0-32.0); MCHC 30.2 g/dL (32.0-37.0); MCV 88.6 fL (80.0-97.0); Mean Platelet Volume 9.4 fL (9.5-12.2); Monocytes # (A) 0.87 X 10*3/uL (0.20-1.00); Monocytes % (A) 6.2 %; NRBC Per 100 WBC 0.1 /100 WBCS (0.0-0.0); Neutrophils # (A) 11.17 X 10*3/uL (1.80-7.70); Neutrophils % (A) 79.1 %; Platelet Count 948 X 10*3/uL (140-440); RBC 2.99 X 10*6/uL (4.10-5.20); RDW 15.3 % (11.5-14.5); WBC 14.12 X 10*3/uL (4.50-10.00)
[2022-05-06 12:06] VITALS: BMI 31.3
--- NOTE | 2022-05-06 13:06 | P.PN ---
Subjective Progress Note Date: 05/06/22 Principal diagnosis: bowel evisceration 51F presented to ER with bowel evisceration from recent hysterectomy. Underwent hysterectomy 2 weeks ago at [facility] for uterine fibroids. Endorsed some fluid leaking from incision then this morning after a coughing spell, noticed bowel protruding from incision. She refused to be transferred back to [facility]. 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 Taken to OR day of ER admission for exploratory laparotomy with lysis of adhesions, abdominal washout, primary closure of fascia with wound vac placement. Returned to OR 05/03 for abdominal wound washout with mesh reinforcement of incision, skin closure, placement of Prevena wound vac. Doing well. Eager to home but scared it will happen again. Nervous that pain won't be adequately controlled. Objective - Vital Signs Vital signs: Vital Signs Temp 97.7 F 05/06/22 10:18 Pulse 92 05/06/22 10:28 Resp 14 05/06/22 10:28 BP 134/77 05/06/22 10:18 Pulse Ox 96 05/06/22 10:18 FiO2 21 05/06/22 08:37 Intake & Output 05/05/22 05/06/22 05/06/22 18:59 06:59 18:59 Intake Total 118 Output Total 95 Balance -95 118 Weight 87.997 kg Intake: Oral 118 Output: Drainage 95 Anterior Abdomen 0 Left Lower Abdomen 15 Right Lower Abdomen 80 Other: Voiding Method Toilet # Voids 1 2 # Bowel Movements 1 - Constitutional General appearance: Present: cooperative, no acute distress - EENT Eyes: Present: anicteric sclerae ENT: Present: hearing grossly normal - Neck Details: supple - Respiratory Details: non labored breathing, normal effort & excursion - Cardiovascular Rhythm: regular - Integumentary Integumentary: Present: normal. Absent: cyanotic, jaundiced - Neurologic Neurologic Comment(s): no gross deficits - Psychiatric Psychiatric Comment(s): cooperative Psychiatric: Present: appropriate affect - Labs CBC & Chem 7: 05/06/22 05:49 05/05/22 06:34 Labs: Abnormal Lab Results - Last 24 Hours (Table) 05/06/22 Range/Units 05:49 WBC 14.12 H (4.50-10.00) X 10*3/uL RBC 2.99 L (4.10-5.20) X 10*6/uL Hgb 8.0 L (12.0-15.0) g/dL Hct 26.5 L (37.2-46.3) % MCH 26.8 L (27.0-32.0) pg MCHC 30.2 L (32.0-37.0) g/dL RDW 15.3 H (11.5-14.5) % Plt Count 948 H (140-440) X 10*3/uL MPV 9.4 L (9.5-12.2) fL Absolute Nucleated RBC 0.02 H (0.00-0.00) X 10*3/uL Immature Gran # 0.14 H (0.00-0.04) X 10*3/uL Neutrophils # 11.17 H (1.80-7.70) X 10*3/uL Eosinophils # 0.59 H (0.04-0.35) X 10*3/uL NRBC/100 WBC Diff 0.1 H (0.0-0.0) /100 WBCS Microbiology - Last 24 Hours (Table) 05/01/22 09:25 Blood Culture - Preliminary Blood No Growth after 120 hours 05/01/22 09:10 Blood Culture - Preliminary Blood No Growth after 120 hours Assessment and Plan Assessment: small bowel evisceration incisional wound dehiscence recent hysterectomy at [facility] s/p exploratory laparotomy with abdominal washout, closure of fasica & application of wound vac s/p abdominal wound washout, excision of necrotic subcutaneous tissue, reinforcement of primary fascial repair with mesh, skin closure with Prevena wound vac application leukocyosis, likely reactive from surgery Plan: Prevena wound vac off prior to discharge OK for discharge from surgical standpoint continue stool softeners while on narcotics & iron supplementation Time with Patient: Less than 30
[2022-05-06] MEDS: SODIUM FERRIC GLUCONAT-SUCROSE 125 MG in SODIUM CHLORIDE 0.9% 100 ML IVPB SCH (13:44)
[2022-05-06 14:36] VITALS: BP 145/85; PULSE 88; RESP 18; TEMP 98
--- NOTE | 2022-05-06 16:15 | P.DS ---
Providers Date of admission: 05/01/22 09:38 Expected date of discharge: 05/06/22 Attending physician: Dre Beauchamp Consults: 05/01/22 09:38 Consult Physician Urgent Consulting Provider: Magali Harkins Consult Reason/Comments: Wound dehiscence Do you want consulting provider notified?: Yes 05/03/22 16:55 Consult Physician Routine Consulting Provider: Zoraida Ocampo Consult Reason/Comments: Abnormal CBC, with immature cells Do you want consulting provider notified?: Yes Primary care physician: Avtar Michelle MD Hospital Course: 31-year-old female is admitted for wound dehiscence after coughing spell. 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 Patient has clear serous drainage beyond which examination is limited because of evisceration of the bowel, patient has a dressing over the dehiscence wound. Patient was given Zosyn in ER. Patient is going to OR. She had recent abdominal hysterectomy for uterine fibroids. 05/02/2022 Patient evaluated today postoperative day #1 eploratory laporatomy with adbominal washout, lysis of adhesions, primary closure and wound vac placement. Patient had bowel evisceration. Patient is currently afebrile. Has white count of 26.33 today and will remain on IV zosyn. Blood culture pending. Wound vac in place with no air leak and patient is wearing abdominal binder. Platelet count of 1095 today. Which will be repeated and monitored. Patient does continue on nasal cannula and chest xray done which is negative for consolidation, effusion or pneumothorax. Patient has NG tube in place with 700 mls of dark brown gastric output. Currently NPO. Patient is maintained on D5 0.45 normal saline at 100 mls/hr. Urine output 1.4 L in the last 24 hours. 05/03/2022: I assumed care of the patient today. Declining in bed. Has a wound VAC in place. NG tube to suction. Has been at the operative site. No flatus. Pending surgery this afternoon. 05/04/2022: Underwent debrided with cleaning off incision tissue yesterday. mesh was placed. Wound VAC placed. Getting an accu- cath today. No nausea. Pain better control. Await hematology consult. Passing flatus 05/05/2022: Tolerating a soft diet. Had a BM. Did walk in the hallway. Wound VAC in place. Pain better controlled. No nausea vomiting. Patient was seen by hematology. [place] to be reactive thrombocytosis. Aspirin was added. Iron deficient anemia. IV iron being given. 05/06/2022: Feeling better. Wound VAC is to come off. Had discussed with Dr. Santiago the surgeon. Wound is clean. No need for antibiotics. Discussed smoke cessation with the patient. Discharge bit green patch. Questions answered. Patient getting IV iron. Discussion and discharge planning more than 35 minutes On examination: VITAL SIGNS: 98, 88, 18, 145/85, 96 % room air GENERAL APPEARANCE:reclining in bed , comfortable HEENT: Normal external appearance of nose and ear. Oral cavity normal EYES: Pupils equal. Conjunctiva normal. NECK: JVD not raised. Mass not palpable. RESPIRATORY: Respiratory effort normal. Lungs clear to auscultation. CARDIOVASCULAR: First and second sounds normal. No edema. ABDOMEN: Soft. Mild Tender, no guarding rigidity. Wound VAC over midline incision lower abdomen. Binder in place. PSYCHIATRY: Alert and oriented x3. Mood and affect normal. INVESTIGATIONS, reviewed in the clinical context: May 06: White count 14.1 hemoglobin 8 platelets 928 May 05: White count 13.5 hemoglobin 8.1 platelets 905 potassium 4.5 creatinine 0.6 I did 11 TIBC 237% saturation 4.61 transferrin 169 May 04: White count 15.5 hemoglobin 8.6 platelets 931 White count 13.2 hemoglobin 8.6 platelets 1030 sodium 135 potassium 4.1 creatinine 0.8 EKG: Normal sinus rhythm Checks x-ray: Shows NG tube Assessment and plan -Wound dehiscence from recent open abdominal hysterectomy with bowel evisceration. postoperative day #1 exploratory lap, washout and closure. Wound vac in place. May 03: Abdominal wound washout with excision of necrotic subcutaneous tissue, reinforcement of primary closure with mesh, and placement of prevena wound vacs Wound VAC being discontinued before discharge. Follow-up with surgery. No need for antibiotics per Dr. Santiago -Leukocytosis secondary to above. -Leukocytosis with anemia with severe thrombocytosis. Secondary to iron deficiency anemia and abdominal wound . Seen by hematology -COPD in a current smoker Albuterol 2 puffs 4 times a day -Iron deficiency anemia IV Ferrlecit 2 -Essential Hypertension Tenormin 25 mg -Chronic nicotine dependence, tobacco use Nicotine patch -Obesity BMI 31.3 Weight loss measures -Full code Disposition: Home Plan - Discharge Summary Discharge Rx Participant: No New Discharge Prescriptions: New Aspirin 81 mg PO DAILY tab Nicotine 14Mg/24Hr Patch [Habitrol] 1 patch TRANSDERM DAILY #14 patch Psyllium Husk 100% [Metamucil Packet] 1 packet PO DAILY #30 packet Continue Tiotropium [place] [Spiriva Handihaler] 18 mcg INHALATION RT-DAILY Omeprazole 20 mg PO DAILY Levothyroxine Sodium [Synthroid] 25 mcg PO DAILY Albuterol Sulfate [Ventolin HFA] 1 - 2 puff INHALATION RT-Q6H PRN PRN Reason: Shortness Of Breath Multivitamins, Thera [Multivitamin (formulary)] 1 tab PO DAILY Montelukast [Singulair] 10 mg PO DAILY Ferrous Sulfate [Iron (65 MG Elemental)] 325 mg PO DAILY Losartan Potassium 100 mg PO DAILY atenoloL [Tenormin] 25 mg PO DAILY Estradiol Cream [Estrace Cream 0.01%] 1 applic VAGINAL DIRECTED Cetirizine HCl 10 mg PO DAILY Ibuprofen [Motrin] 800 mg PO Q8H PRN PRN Reason: Pain Or Fever > 100.5 HYDROcodone/APAP 7.5-325MG [[place] 7.5-325] 1 tab PO Q4H PRN #18 tab PRN Reason: Pain Discontinued Docusate [Colace] 100 mg PO BID PRN PRN Reason: Constipation No Action amLODIPine [Norvasc] 10 mg PO DAILY Discharge Medication List Albuterol Sulfate [Ventolin HFA] 1 - 2 puff INHALATION RT-Q6H PRN 05/01/22 [History] Cetirizine HCl 10 mg PO DAILY 05/01/22 [History] Estradiol Cream [Estrace Cream 0.01%] 1 applic VAGINAL DIRECTED 05/01/22 [History] Ferrous Sulfate [Iron (65 MG Elemental)] 325 mg PO DAILY 05/01/22 [History] Ibuprofen [Motrin] 800 mg PO Q8H PRN 05/01/22 [History] Levothyroxine Sodium [Synthroid] 25 mcg PO DAILY 05/01/22 [History] Losartan Potassium 100 mg PO DAILY 05/01/22 [History] Montelukast [Singulair] 10 mg PO DAILY 05/01/22 [History] Multivitamins, Thera [Multivitamin (formulary)] 1 tab PO DAILY 05/01/22 [History] Omeprazole 20 mg PO DAILY 05/01/22 [History] Tiotropium [place] [Spiriva Handihaler] 18 mcg INHALATION RT-DAILY 05/01/22 [History] amLODIPine [Norvasc] 10 mg PO DAILY 05/01/22 [History] atenoloL [Tenormin] 25 mg PO DAILY 05/01/22 [History] Aspirin 81 mg PO DAILY tab 05/06/22 [Rx] HYDROcodone/APAP 7.5-325MG [[place] 7.5-325] 1 tab PO Q4H PRN #18 tab 05/06/22 [Rx] Nicotine 14Mg/24Hr Patch [Habitrol] 1 patch TRANSDERM DAILY #14 patch 05/06/22 [Rx] Psyllium Husk 100% [Metamucil Packet] 1 packet PO DAILY #30 packet 05/06/22 [Rx] Follow up Appointment(s)/Referral(s): Mitchell Laura MD [STAFF PHYSICIAN] - 06/08/22 10:00 am Trell Trevino MD [REFERRING] - 1-2 days (Please call office for appointment.) Magali Harkins DO [Doctor of Osteopathic Medicine] - 05/30/22 10:45 am [facility] Visiting Nurse, [NON-STAFF] - 1-2 Days Patient Instructions/Handouts: Open Herniorrhaphy (DC), Deep Vein Thrombosis Prevention (DC) Activity/Diet/Wound Care/Special Instructions: No heavy lifting >10 lbs for next 2 weeks. Prevena to be removed at discharge. OK to leave open to air or cover with gauze dressing if irritated by clothing. ADAM to remain in place until clinic follow up. OK to shower & let soap/water run over incision; pat dry. No soaking, bathing, hot tubs, swimming for 6 weeks. Stool softeners while on narcotic pain medications. Rx for scheduled muscle relaxant; alternate [place] with Motrin 600 for optimal pain mgmt. daily am BP check ; resume amlodipine when SBP > 140
--- NOTE | 2022-05-12 20:31 | P.OP ---
Date of Procedure: 05/01/22 Preoperative Diagnosis: bowel evisceration wound dehiscence recent hysterectomy at [facility] Postoperative Diagnosis: bowel evisceration wound dehiscence recent hysterectomy at [facility] impending bowel obstruction Procedure(s) Performed: exploratory laparotomy, abdominal washout, lysis of adhesions, creation of fasciocutaneous flaps, primary closure of fascia, wound vac placement Anesthesia: MERLIN Surgeon: Magali Harkins Estimated Blood Loss (ml): 20 Pathology: none sent Condition: stable Disposition: floor Indications for Procedure: bowel evisceration Operative Findings: Eviscerated bowel. Intact fasicia after fasciocutaneous mobilization & creation of flaps. Poor fascial tissue. Impending bowel obstruction with adhesions of small bowel to small bowel & small bowel to pelvis, about 20-25 cm from terminal ileum; proximal to this was dilated small bowel, distal to this was decompressed bowel. Unable to confirm NG placement due to adhesions from prior surgery; functional intra operatively. Adhesions taken down & bowel replaced. Fascia closed under normal physiologic tension with no changes in peak airway pressures using running 1 PDS suture, interlocked with 1 Vicryl suture. No mesh available for reinforcement. Adaptec placed to protect wound & wound vac placed to 75mmHg. Will likely need a few returns to OR for washout & wound vac placement, until able to tolerate bedside changes. Description of Procedure: Miladis was brought to the operative suite & placed in the supine position. General anesthesia was administered by the anesthesia team & her heart rate, pulse oximetry, and blood pressure were monitored throughout the entire case. Standard timeout was taken & appropriate SCIP antibiotics were administered. Abdominal wall & abdominal contents were prepped & draped in standard sterile fashion. Eviscerated bowel was noted to be extremely edematous & thickened, as though it had been eviscerated through the fascia for awhile. Previous incision was extended to allow for complete visualization of the small bowel, which was noted to be densely adhered to pelvic wall & small bowel to small bowel. These were carefully taken down using a combination of sharp dissection with scissors, blunt dissection, and electrocautery. The most dense adhesions were in the pelvis, about 20-25 cm from terminal ileum; proximal to this was dilated small bowel & distal to this was decompressed bowel. There were signs of impending bowel obstruction. Once the adhesions were taken down, bowel was eviscerated and run from Ligament of Treitz to terminal ileum. No signs of bowel compromise. Fascial quality was noted to be poor. Fasciocutaneous flaps were created to healthier edges of fascia. Fascia was then closed under normal physiologic tension with no changes in peak airway pressure using running bidirectional fashion with 1 PDS suture, interlocked with #1 Vicryl suture. Wound was washed out & adaptec placed to protect wound; wound vac was placed to 75mm Hg. At risk for wound infection & fascial dehiscence so will place wound vac. Will need return to OR for wound washout & vac change, until she can tolerated bedside vac change. OR staff reported counts to be correct. Miladis tolerated the procedure well & was extubated post-operatively without incident. She was transferred from the operating room to the recovery room in a stable condition. Upon a stable recovery, she will return to her room on the floor for post-operative management.
--- NOTE | 2022-05-12 20:48 | P.OP ---
Date of Procedure: 05/03/22 Preoperative Diagnosis: bowel evisceration s/p primary repair of fascia with wound vac open abdominal wound Postoperative Diagnosis: bowel evisceration s/p primary repair of fascia with wound vac open abdominal wound Procedure(s) Performed: abdominal wound washout with excision of necrotic subcutaneous tissue, reinforcement of primary closure with onlay Phasix mesh, closure of wound, placement of Prevena wound vac Implants: Phasix mesh Anesthesia: GETA Surgeon: Magali Harkins Estimated Blood Loss (ml): 20 Pathology: none sent Condition: stable Disposition: PACU Indications for Procedure: open abdominal wound, inability to tolerate bedside wound vac change Operative Findings: Well healing repair. Some necrotic subcutaneous tissue along wound edges, which was excised to healthy tissue. Fascial closure reinforced with Phasix mesh. Two 19Fr drains placed & skin/subcutaneous layers closed over mesh & drains. Dressed with Prevena wound vac. Description of Procedure: Miladis was brought to the operative suite & placed in the supine position. General anesthesia was administered by the anesthesia team & her heart rate, pulse oximetry, and blood pressure were monitored throughout the entire case. Standard timeout was taken & appropriate SCIP antibiotics were administered. Abdominal wall & wound were prepped & draped in standard sterile fashion. Fascial closure was noted to be healing well. Some necrotic subcutaneous tissue along the wound edges, which were excised with electrocautery to healthy tissue. Wound was copiously irrigated with sterile saline. Fascial closure was reinforced with Phasix mesh. Due to the large wound cavity created in order to close the fascia, two 19Fr drains were placed between the mesh & the subcutaneous tissue. Drains were brought out the lower end of the abdominal wound & sutured to the skin using 2-0 Nylon suture. The wound was closed in layers, as she would not tolerated bedside vac changes. The deep subcutaneous layer was closed with 2-0 PDS suture & the deep dermal layer was closed with 3-0 PDS. Skin was reapproximated with skin cecily & Prevena wound vac was applied to try & prevent seroma formation. OR staff reported counts to be correct. Miladis tolerated the procedure well & was extubated post-operatively without incident. She was transferred from the operating room to the recovery room in a stable condition. Upon a stable recovery, she will return to her room on the floor for post-operative management.
== END 2022-05-06 16:21 | disposition home health service (06) | DRG 792 ==
LOC: EC 08:58 → 4SSUR 09:38
PROVIDERS: ADMIT Hospitalist; ATTEND Hospitalist
PROC: 0DN80ZZ Release Small Intestine, Open Approach (ICD-10-PCS; 2022-05-01)
PROC: 0JX80ZZ Transfer Abdomen Subcutaneous Tissue and Fascia, Open Approach (ICD-10-PCS; 2022-05-01)
PROC: 0DTE0ZZ Resection of Large Intestine, Open Approach (ICD-10-PCS; 2022-05-01)
PROC: 0WJF0ZZ Inspection of Abdominal Wall, Open Approach (ICD-10-PCS; principal; 2022-05-01 13:00)
PROC: 0JB83ZZ Excision of Abdomen Subcutaneous Tissue and Fascia, Percutaneous Approach (ICD-10-PCS; 2022-05-03)
PROC: 0JU80JZ Supplement of Abdomen Subcutaneous Tissue and Fascia with Synthetic Substitute, Open Approach (ICD-10-PCS; 2022-05-03)
DX: T81.32XA Disruption of internal operation (surgical) wound, not elsewhere classified, initial encounter (principal); F17.210 Nicotine dependence, cigarettes, uncomplicated; D50.9 Iron deficiency anemia, unspecified; E66.9 Obesity, unspecified; D75.838 Other thrombocytosis; I10 Essential (primary) hypertension; J44.9 Chronic obstructive pulmonary disease, unspecified; Z68.31 Body mass index [BMI] 31.0-31.9, adult; G89.29 Other chronic pain; Y83.8 Other surgical procedures as the cause of abnormal reaction of the patient, or of later complication, without mention of misadventure at the time of the procedure; Z90.710 Acquired absence of both cervix and uterus; Z88.1 Allergy status to other antibiotic agents; Z87.42 Personal history of other diseases of the female genital tract; Z79.890 Hormone replacement therapy; Z79.899 Other long term (current) drug therapy; Z79.51 Long term (current) use of inhaled steroids
CPT/HCPCS: 36410; 36415; 71045; 76937; 80048; 80053; 82728; 83540; 83550; 83605; 83735; 84100; 85025; 85027; 85610; 85730; 86850; 86900; 86901; 87040; 93005; 94640; 94760; 96374; 96375; 99285

== ENCOUNTER 2023-11-21 07:44 | Day surgery (SDC) | payer OTHER ==
[2023-11-20 09:09] VITALS: BMI 25.8
[2023-11-21] MEDS: IV FLUID CONTINUATION 1,000 ML IV ONE (08:15)
[2023-11-21 08:17] VITALS: RESP 16; TEMP 97.1
[2023-11-21] MEDS: LACTATED RINGERS 1,000 ML IV SCH (08:23)
[2023-11-21] MEDS: LIDOCAINE 1% (10MG/ML) FOR IV START INTRADERMA PRN (08:23)
[2023-11-21] MEDS ORDERED: PROPOFOL 10 MG/ML 20 ML VIAL IV ONE (08:33)
--- NOTE | 2023-11-21 08:58 | P.PCN ---
Date of Procedure: 11/21/23 Procedure(s) Performed: Brief history: Patient is a pleasant 53-year-old white female scheduled for an elective upper endoscopy as well as colonoscopy as a part of evaluation of GERD/intermittent rectal bleeding. Procedure performed: Esophagogastroduodenoscopy with biopsy Colonoscopy Preoperative diagnosis: Longstanding history of GERD Intermittent rectal bleeding Anesthesia: MAC Procedure: After informed consent was obtained from the patient was brought into the endoscopy unit and IV sedation was administered by anesthesia under continuous monitoring. Initially upper endoscopy was done. The Olympus GF 160 video endoscope was inserted inserted into the mouth and esophagus intubated without a ny difficulty and was gradually advanced into the stomach and duodenum and carefully examined. The bulb and second part of the duodenum appeared normal. The scope was then withdrawn into the stomach adequately insufflated with air and upon careful examination the antrum had scattered erosions consistent with gastritis and biopsies were done from this area. Mucosa d body, cardia and fundus appeared normal. The scope was then withdrawn into the esophagus. The GE junction was located at 40 cm to the incisors. It appeared regular with no erythema erosions or ulcerations. Rest of the esophagus appeared normal. Patient tolerated the procedure well. At this time the patient continued to remain sedation. Initial digital rectal examination was normal. Olympus CF 160 video colonoscope was then inserted into the rectum and gradually advanced to the cecum without any difficulty. Careful examination was performed as the scope was gradually being withdrawn. The prep was excellent. The cecum, ascending colon, transverse colon, descending colon, sigmoid colon and rectum appeared normal. Retroflexion was performed in the rectum and small internal hemorrhoid were noted. Patient tolerated the procedure well. Impression: 1. Upper endoscopy revealed antral erosive gastritis but no evidence of esophagitis or peptic ulcer disease 2. Colonoscopy revealed small internal hemorrhoids but no evidence of colorectal neoplasia Recommendations: Findings of this examination were discussed with the patient as well as her family. She was advised to follow-up with the biopsy results. She will be seen in the office in 2 to 3 weeks.
[2023-11-21 09:27] VITALS: BP 138/80; PULSE 70
== END 2023-11-21 09:44 | disposition home or self-care (01) ==
LOC: ORWHC2ENDO 07:44
PROVIDERS: ATTEND Internal Medicine Gastroenterology
DX: K21.00 Gastro-esophageal reflux disease with esophagitis, without bleeding (principal); K29.60 Other gastritis without bleeding; K64.8 Other hemorrhoids; Z88.1 Allergy status to other antibiotic agents; Z79.899 Other long term (current) drug therapy
CPT/HCPCS: 88305; 45378; 43239; J2704